=== PATIENT | female | born 1945 | race Caucasian/White ===

== ENCOUNTER → 2017-01-14 | Outpatient (CLI) | payer MEDICARE, BC, OTHER ==
--- NOTE | 2017-01-17 09:23 | MM ---
Reason for exam: additional evaluation requested from prior study. Last mammogram was performed 1 year and 4 months ago. History: Patient is postmenopausal and has history of colon cancer at age 52. Family history of breast cancer in paternal grandmother, breast cancer in paternal aunt at age 55, and premenopausal breast cancer in maternal cousin at age 35. Benign MG pre op needle loc LT of the left breast, October 09, 2015. Benign MG stereo VAD BX LT of the left breast, September 11, 2015. Benign excisional biopsy of the left breast, July 27, 2000. Physical Findings: Nurse did not find any significant physical abnormalities on exam. MG 3D Diag Mammo W/Cad WENDY Bilateral CC and MLO view(s) were taken. Prior study comparison: December 02, 2015, mammogram. September 03, 2015, left breast MG 3d work up w/cad LT. September 01, 2015, bilateral MG screening mammo w CAD. There are scattered fibroglandular densities. No significant new findings when compared with previous films. These results were verbally communicated with the patient and result sheet given to the patient on 01/14/17. ASSESSMENT: Benign, BI-RAD 2 RECOMMENDATION: Routine screening mammogram of both breasts in 1 year.
== END | disposition home or self-care (01) ==
LOC: RADMAMWWP 06:51
PROVIDERS: ATTEND Internal Medicine Hematology & Oncology
DX: R92.8 Other abnormal and inconclusive findings on diagnostic imaging of breast (principal)
CPT/HCPCS: G0204; G0279

== ENCOUNTER → 2018-03-28 | Outpatient (CLI) | payer MEDICARE, BC, OTHER ==
--- NOTE | 2018-03-28 11:16 | MM ---
Reason for exam: screening (asymptomatic). Last mammogram was performed 1 year and 2 months ago. History: Patient is postmenopausal and has history of colon cancer at age 52. Family history of breast cancer in paternal grandmother, breast cancer in paternal aunt at age 55, and premenopausal breast cancer in maternal cousin at age 35. Benign MG pre op needle loc LT of the left breast, October 09, 2015. Benign MG stereo VAD BX LT of the left breast, September 11, 2015. Benign excisional biopsy of the left breast, July 27, 2000. Physical Findings: A clinical breast exam by your physician is recommended on an annual basis and results should be correlated with mammographic findings. MG 3D Screening Mammo W/Cad Bilateral CC and MLO view(s) were taken. Prior study comparison: January 14, 2017, bilateral MG 3d diag mammo w/cad WENDY. December 02, 2015, mammogram. There are scattered fibroglandular densities. No significant changes when compared with prior studies. ASSESSMENT: Benign, BI-RAD 2 RECOMMENDATION: Routine screening mammogram of both breasts in 1 year.
== END | disposition home or self-care (01) ==
LOC: RADMAMWWP 06:46
PROVIDERS: ATTEND Internal Medicine Hematology & Oncology
DX: Z12.31 Encounter for screening mammogram for malignant neoplasm of breast (principal)
CPT/HCPCS: 77063; 77067

== ENCOUNTER → 2018-07-10 | Outpatient (CLI) | payer MEDICARE, BC ==
--- NOTE | 2018-07-12 03:43 | CT ---
EXAMINATION TYPE: CT ChestAbdPelvis w con DATE OF EXAM: 07/10/2018 COMPARISON: Abdomen and pelvis 10/16/2015 HISTORY: 73-year-old female complains of nausea, diarrhea, and history of colorectal CA. TECHNIQUE: Contiguous axial scanning of the chest, abdomen, and pelvis performed with IV Contrast, pa tient injected with 100 mL of Isovue 300. Delayed images through the kidneys were obtained. Coronal/s agittal reconstructions performed. CT DLP: 1662 mGycm Automated exposure control for dose reduction was used. FINDINGS: Chest: Heart borderline enlarged without pericardial effusion. Aorta normal caliber with conventional arch vessel branching anatomy. No thoracic lymphadenopathy by CT size criteria. Mild diffuse bronchial wall thickening could represent bronchitis or asthma. Mild dependent atelectas is and thickened band of atelectasis at the left base. No consolidation or pleural effusion. ABDOMEN: The liver shows no focal lesion but now demonstrates moderate intrahepatic biliary ductal dilatation. Portal venous system is patent. Gallbladder hydropic measuring 14 cm long with multiple calculi jessee uring up to 1.8 cm. No surrounding inflammatory change. In addition, there is new mild diffuse dilatation of the main pancreatic duct up to 5 mm. Pancreatic atrophy was present on prior exam but there is a new hypovascular 2.3 cm mass within the pancreatic h ead region. Adjacent hypodense lesion adjacent to the uncinate process suspected peripancreatic lymph node measur ing 1.7 cm. Adrenal glands, kidneys, and spleen appear within normal limits. No dilated small bowel, free fluid, or free air. No additional mesenteric or retroperitoneal lymphadenopathy identified. Oral contrast has progressed to the hepatic flexure. Mild to moderate stools present with scattered c olonic diverticulosis. Left lower quadrant sigmoid colostomy with redemonstrated parastomal hernia. The hernia neck measures 3.8 cm wide persistent 3.2 cm, previously in the hernia sac itself contains mesentery and small carmen l loops measuring up to 13.6 cm wide and 16.3 cm craniocaudal (versus 13.7 x 15.1 cm, previously. The re continues to be mass effect on to the anterior abdominal wall suggesting a hernia may be incarcera ada. No inflammatory changes are seen within the hernia sac. Some focal soft tissue thickening along the inferomedial margin of the hernia sac, axial image 99 rem ains unchanged from 2016 suggesting possible scarring. PELVIS: Surgical clips and postoperative changes in the pelvis and at the level of the distal rectum which arechiga s been removed. Bladder is urine distended. Uterus is visualized. Neither ovary is clearly seen. Bones: Scattered endplate spondylosis in the thoracic spine. No osseous destructive process. IMPRESSION: 1. POSTSURGICAL CHANGES OF DISTAL RESECTION AND LEFT LOWER QUADRANT SIGMOID COLOSTOMY. THERE IS PERSI STENT 16.3 CM PARASTOMAL HERNIA CONTAINING MESENTERY AND MULTIPLE SMALL BOWEL LOOPS WITH THE HERNIA H AVING MINIMALLY ENLARGED IN THE INTERVAL. UNCHANGED MASS EFFECT ONTO THE ANTERIOR ABDOMINAL WALL SUGG ESTS THAT THE HERNIA MAY BE INCARCERATED. NO INFLAMMATORY CHANGES TO SUGGEST STRANGULATION. 2. NEW 2.3 CM HYPOVASCULAR PANCREATIC HEAD MASS WITH NEW INTRAHEPATIC BILIARY DUCTAL DILATATION AND M ILD DIFFUSE DILATATION OF THE PANCREATIC DUCT. FINDINGS SUGGEST PANCREATIC ADENOCARCINOMA UNTIL PROVE N OTHERWISE. 3. A NEW 1.7 CM PERIPANCREATIC LYMPH NODE ADJACENT TO THE UNCINATE PROCESS IS SUSPICIOUS. 4. CHOLELITHIASIS AND HYDROPIC GALLBLADDER WITHOUT SURROUNDING INFLAMMATION. HYDROPIC CHANGE LIKELY S ECONDARY TO THE SAME MECHANISM CAUSING THE BILIARY DUCTAL DILATATION.
== END ==
LOC: RADCTMAIN 11:22
PROVIDERS: ATTEND Nurse Practitioner Women's Health
DX: Z08 Encounter for follow-up examination after completed treatment for malignant neoplasm (principal); Z85.038 Personal history of other malignant neoplasm of large intestine; K80.20 Calculus of gallbladder without cholecystitis without obstruction; Z88.0 Allergy status to penicillin
CPT/HCPCS: 71260; 74177; Q9967

== ENCOUNTER 2018-08-18 08:16 | Day surgery (SDC) | payer MEDICARE, BC ==
[2018-08-14 15:31] VITALS: BMI 33.4
[~2018-08-18 08:16] MED LIST: DEXAMETHASONE SOD PHOSPHATE 10 MG/ML 1 ML VIAL IV ONE; HYDROmorphone 0.5 MG/0.5 ML SYRINGE IVP PRN; LACTATED RINGERS 1,000 ML IV SCH; MIDAZOLAM 2 MG/2 ML VIAL IV PRN; ONDANSETRON 4 MG/2 ML VIAL IVP ONE; Pre Op ABX Message 1 EACH MISC MISCELLANE ONE
--- NOTE | 2018-08-18 08:42 | P.GSHP ---
History of Present Illness H&P Date: 08/18/18 CHIEF COMPLAINT: Pancreatic cancer HISTORY OF PRESENT ILLNESS: The patient is a 73-year-old female diagnosed with pancreatic cacner. Sbe needs a Mediport placement for chemotherapy. PAST MEDICAL HISTORY: See list PAST SURGICAL HISTORY: See list CURRENT MEDICATIONS: See list. ALLERGIES: See list. SOCIAL HISTORY: No active tobacco or alcohol use. FAMILY HISTORY: Noncontributory. REVIEW OF ORGAN SYSTEMS: CONSTITUTIONAL: Has weight loss. PHYSICAL EXAMINATION: Vital signs: Stable GENERAL: Well developed and in no acute distress. Pleasant. HEENT: No sclera icterus. Extraocular movements grossly intact. Moist buccal mucosa. Head is atraumatic, normocephalic. Hears conversational speech. No nasal drainage. NECK: Supple without lymphadenopathy. No JV distention. CHEST: Non-labored respirations and equal bilateral excursions. CARDIOVASCULAR: Regular rate and rhythm. Palpable 2+ radial pulses. ABDOMEN: Nontender. MUSCULOSKELETAL: No clubbing, cyanosis or edema. NEUROLOGIC: No focal or lateralizing signs. PSYCH: Appropriate affect. Alert and oriented to person, place and time. ASSESSMENT: 1. Pancreatic cancer. 2. Need for chemotherapeutic access. PLAN: 1. Agree with Port-A-Cath placement. Past Medical History Past Medical History: Cancer, Diabetes Mellitus, Osteoarthritis (OA) Additional Past Medical History / Comment(s): HX OF COLO-RECTAL CANCER WITH CHEMO & RADIATION( 1997)- HAS COLOSTOMY. Pancreatic cancer (dx 08/01)fs History of Any Multi-Drug Resistant Organisms: None Reported Past Surgical History: Appendectomy, Bowel Resection, Joint Replacement, Tonsillectomy Additional Past Surgical History / Comment(s): MISCARRIAGE WITH D & C, LEFT BREAST BX, COLOSTOMY, WENDY TOTAL KNEES, "stent placed in tube from liver to pancreas" Past Anesthesia/Blood Transfusion Reactions: No Reported Reaction Smoking Status: Never smoker - Past Family History Father Family Medical History: Cancer Additional Family Medical History / Comment(s): LUNG CA. GRANDMOTHER- COLORECTAL CANCER. GRANDMOTHER- BREAST CANCER Mother Family Medical History: Neurologic Disorder Additional Family Medical History / Comment(s): "she from alzheimers" Brother(s) Family Medical History: Cancer Additional Family Medical History / Comment(s): CA: colorectal- Sister(s) Family Medical History: Cancer Additional Family Medical History / Comment(s): CA: cervical ca caused by Diethylstilbestrol (VANESSA) that mother received while with her Medications and Allergies Home Medications Medication Instructions Recorded Confirmed Type Levothyroxine Sodium [Synthroid] 50 mcg PO DAILY 08/14/18 08/14/18 History Lipase/Protease/Amylase [Chazon Dr 12,000 units PO AC-TID 08/14/18 08/14/18 History 12,000 Units Capsule] metFORMIN HCL [Glucophage] 500 mg PO BID 08/14/18 08/14/18 History Allergies Allergy/AdvReac Type Severity Reaction Status Date / Time Penicillins AdvReac Unknown Nausea & Verified 08/14/18 15:19 Vomiting
[2018-08-18] MEDS ORDERED: ceFAZolin IN SWFI 2 GM/20 ML SYRINGE IVP STA (08:43)
[2018-08-18 09:16] LABS: Glucose,Whole Blood 238 mg/dL (75-99)
[2018-08-18] MEDS ORDERED: INSULIN ASPART (NovoLOG) 100 UNIT/ML VIAL SQ ONE (09:16)
[2018-08-18] MEDS ORDERED: HEPARIN SODIUM,PORCINE 100 UNIT/ML 5 ML VIAL IV ONE ×2 (09:48→10:39)
[2018-08-18] MEDS ORDERED: HEPARIN SODIUM,PORCINE 10,000 UNIT/ML 1 ML VIAL IV ONE (09:49)
[2018-08-18] MEDS ORDERED: BUPIVACAIN-EPI 0.25%-1:200,000 30 ML VIAL SQ ONE (09:50)
[2018-08-18] MEDS ORDERED: fentaNYL (PF) 50 MCG/ML 2 ML AMP ONE (10:02)
[2018-08-18] MEDS ORDERED: MIDAZOLAM 2 MG/2 ML VIAL ONE (10:02)
[2018-08-18] MEDS ORDERED: PROPOFOL 10 MG/ML 20 ML VIAL IV ONE (10:02)
[2018-08-18 11:05] VITALS: TEMP 97.2
--- NOTE | 2018-08-18 11:16 | FL ---
EXAMINATION TYPE: FL guided central line placemt DATE OF EXAM: 08/18/2018 CLINICAL HISTORY: Mediport placement. Fluoroscopic documentation. TECHNIQUE: Fluoroscopy. COMPARISON: None. FINDINGS: Fluoroscopic guidance was provided during procedure performed by Dr. Johnson. A total o f 1 seconds of fluoroscopic time was utilized during the procedure and 1 spot images was acquired dem onstrating a right-sided Mediport. IMPRESSION: As Above.
[2018-08-18 11:32] LABS: Glucose,Whole Blood 257 mg/dL (75-99)
--- NOTE | 2018-08-18 11:36 | P.PCN ---
Date of Procedure: 08/18/18 Description of Procedure: SURGEON: MAYELIN JOHNSON MD SPORTING GOODS SALES MANAGER: None. PREOPERATIVE DIAGNOSES: 1. Pancreatic cancer 2. Need for chemotherapeutic access. 3. Morbid obesity due to excess calories, BMI 33.5 4. Hypertensive heart disease. 5. Diabetes type 2, [id number] 6. Hypothyroidism 7. Pancreatic insufficiency 8. History of prior right chest wall Mediport POSTOPERATIVE DIAGNOSES: 1. Pancreatic cancer 2. Need for chemotherapeutic access. 3. Morbid obesity due to excess calories, BMI 33.5 4. Hypertensive heart disease. 5. Diabetes type 2, [id number]-nrmdhmigh 6. Hypothyroidism 7. Pancreatic insufficiency 8. History of prior right chest wall Mediport PROCEDURES PERFORMED: 1. Ultrasound guided central venous access of the right internal jugular venous vein. 2. Fluoroscopic guidance for central venous access right internal jugular vein, 1 seconds. 3. Placement of right internal jugular power port 6 Thai by Ang[employer], Xcela Plus Port ANESTHESIA: IV sedation with local. ESTIMATED BLOOD LOSS: 2 mL. SPECIMENS REMOVED: None. COMPLICATIONS: None. INDICATIONS: The patient is a 73-year-old female recently diagnosed with pancreatic cancer. She presents for chemotherapeutic access. Benefits and risks of surgical intervention were described including bleeding, infection, mechanical problems with his port. Informed consent was obtained. DESCRIPTION OR PROCEDURE: Patient was brought into the operating room, laid in supine position. After adequate IV sedation, the chest and right neck were prepped and draped in a standard sterile fashion including the shoulder with ChloraPrep. Timeout protocol was confirmed with the surgical team regarding the patient's name, procedure to be performed including preoperative medications for which she received IV antibiotics. Bilateral SCDs were placed. An ultrasound was used to capture views of the right internal jugular vein including right carotid artery, which was patent and without thrombus along its course. The right IJ was then localized using anesthetic for the skin. A 16 Thai needle was used to access the IJ. A guidewire was advanced into the IJ with dark nonpulsatile venous blood. Two fingerbreadths distal to the clavicle, on the lateral third, a transverse 1.5 to 2 cm incision was deepened into the skin after localizing the skin. A pocket was created for the port. The port on the back table was flushed with heparinized saline and then attached to the catheter tubing. An adapter was fastened to the actual port site over the tubing. The port easily had fit snug into the pocket. A subcutaneous tunneler was placed along the open end of the tubing and brought out through the separate stab incision. Fluoroscopic guidance confirmed no kinking along the tubing and the port site. Next, the J-wire was exchanged for a catheter sheath for which the tubing was cut to 20 cm and then advanced through the catheter sheath. The Peel-away sheath was then removed and the tubing was secured at the junction of the superior vena cava as well as the right atrium. The tubing was found to be crossed however functional. This was all done under fluoroscopic guidance, 1 seconds. Easy pullback as well as return and aspiration was obtained of the port site. The skin incision was closed using layers using 3-0 Vicryl for the subcu followed by 4-0 Monocryl in a running subcuticular fashion. At the stick site this was also reapproximated using 4-0 Monocryl. The incisions were covered with Optifoam, The skin was cleansed and Exofin liquid glue was applied. Optifoam dressing was placed over the port site. A total of 20 mL of local anesthetic was placed. At the end of the procedure, needle, sponge, and instrument count was verified correct by salesperson surgical appliances. Heparin lock of 5 mL was placed. The patient was awoken and pain free and taken to the second stage postanesthesia care unit. The patient tolerated the procedure well. FINDINGS: 1. No thrombus encountered along the right carotid artery or internal jugular vein. 2. Access of the right internal jugular vein under ultrasound guidance. 3. Fluoroscopy, 1 seconds. Plan - Discharge Summary Discharge Rx Participant: No New Discharge Prescriptions: No Action Levothyroxine Sodium [Synthroid] 50 mcg PO DAILY metFORMIN HCL [Glucophage] 500 mg PO BID Lipase/Protease/Amylase [Creon Dr 12,000 Units Capsule] 12,000 units PO AC- TID Discharge Medication List Levothyroxine Sodium [Synthroid] 50 mcg PO DAILY 08/14/18 [History] Lipase/Protease/Amylase [Creon Dr 12,000 Units Capsule] 12,000 units PO AC-TID 08/14/18 [History] metFORMIN HCL [Glucophage] 500 mg PO BID 08/14/18 [History] Follow up Appointment(s)/Referral(s): Mayelin Johnson MD [STAFF PHYSICIAN] - As Needed Patient Instructions/Handouts: Implanted Venous Access Port (GEN) Activity/Diet/Wound Care/Special Instructions: No lifting over 5 pounds for 5 days. Expect bruising along the shoulder. Remove dressing on 08/21/2018. Please sleep elevated on 2-3 pillows to minimize bruising. May use Tylenol for pain.
--- NOTE | 2018-08-18 11:39 | P.OP ---
Date of Procedure: 08/18/18 Description of Procedure: SURGEON: MAYELIN JOHNSON MD LOADING CHECKER: None. PREOPERATIVE DIAGNOSES: 1. Pancreatic cancer 2. Need for chemotherapeutic access. 3. Morbid obesity due to excess calories, BMI 33.5 4. Hypertensive heart disease. 5. Diabetes type 2, [id number] 6. Hypothyroidism 7. Pancreatic insufficiency 8. History of prior right chest wall Mediport POSTOPERATIVE DIAGNOSES: 1. Pancreatic cancer 2. Need for chemotherapeutic access. 3. Morbid obesity due to excess calories, BMI 33.5 4. Hypertensive heart disease. 5. Diabetes type 2, alo-zoslrqb-zlexyxmkl 6. Hypothyroidism 7. Pancreatic insufficiency 8. History of prior right chest wall Mediport PROCEDURES PERFORMED: 1. Ultrasound guided central venous access of the right internal jugular venous vein. 2. Fluoroscopic guidance for central venous access right internal jugular vein, 1 seconds. 3. Placement of right internal jugular power port 6 Fijian by Ang[employer], Xcela Plus Port ANESTHESIA: IV sedation with local. ESTIMATED BLOOD LOSS: 2 mL. SPECIMENS REMOVED: None. COMPLICATIONS: None. INDICATIONS: The patient is a 73-year-old female recently diagnosed with pancreatic cancer. She presents for chemotherapeutic access. Benefits and risks of surgical intervention were described including bleeding, infection, mechanical problems with his port. Informed consent was obtained. DESCRIPTION OR PROCEDURE: Patient was brought into the operating room, laid in supine position. After adequate IV sedation, the chest and right neck were prepped and draped in a standard sterile fashion including the shoulder with ChloraPrep. Timeout protocol was confirmed with the surgical team regarding the patient's name, procedure to be performed including preoperative medications for which she received IV antibiotics. Bilateral SCDs were placed. An ultrasound was used to capture views of the right internal jugular vein including right carotid artery, which was patent and without thrombus along its course. The right IJ was then localized using anesthetic for the skin. A 16 Fijian needle was used to access the IJ. A guidewire was advanced into the IJ with dark nonpulsatile venous blood. Two fingerbreadths distal to the clavicle, on the lateral third, a transverse 1.5 to 2 cm incision was deepened into the skin after localizing the skin. A pocket was created for the port. The port on the back table was flushed with heparinized saline and then attached to the catheter tubing. An adapter was fastened to the actual port site over the tubing. The port easily had fit snug into the pocket. A subcutaneous tunneler was placed along the open end of the tubing and brought out through the separate stab incision. Fluoroscopic guidance confirmed no kinking along the tubing and the port site. Next, the J-wire was exchanged for a catheter sheath for which the tubing was cut to 20 cm and then advanced through the catheter sheath. The Peel-away sheath was then removed and the tubing was secured at the junction of the superior vena cava as well as the right atrium. The tubing was found to be crossed however functional. This was all done under fluoroscopic guidance, 1 seconds. Easy pullback as well as return and aspiration was obtained of the port site. The skin incision was closed using layers using 3-0 Vicryl for the subcu followed by 4-0 Monocryl in a running subcuticular fashion. At the stick site this was also reapproximated using 4-0 Monocryl. The incisions were covered with Optifoam, The skin was cleansed and Exofin liquid glue was applied. Optifoam dressing was placed over the port site. A total of 20 mL of local anesthetic was placed. At the end of the procedure, needle, sponge, and instrument count was verified correct by surgical services coordinator. Heparin lock of 5 mL was placed. The patient was awoken and pain free and taken to the second stage postanesthesia care unit. The patient tolerated the procedure well. FINDINGS: 1. No thrombus encountered along the right carotid artery or internal jugular vein. 2. Access of the right internal jugular vein under ultrasound guidance. 3. Fluoroscopy, 1 seconds. Plan - Discharge Summary Discharge Rx Participant: No New Discharge Prescriptions: No Action Levothyroxine Sodium [Synthroid] 50 mcg PO DAILY metFORMIN HCL [Glucophage] 500 mg PO BID Lipase/Protease/Amylase [Creon Dr 12,000 Units Capsule] 12,000 units PO AC- TID Discharge Medication List Levothyroxine Sodium [Synthroid] 50 mcg PO DAILY 08/14/18 [History] Lipase/Protease/Amylase [Creon Dr 12,000 Units Capsule] 12,000 units PO AC-TID 08/14/18 [History] metFORMIN HCL [Glucophage] 500 mg PO BID 08/14/18 [History] Follow up Appointment(s)/Referral(s): Mayelin Johnson MD [STAFF PHYSICIAN] - As Needed Patient Instructions/Handouts: Implanted Venous Access Port (GEN) Activity/Diet/Wound Care/Special Instructions: No lifting over 5 pounds for 5 days. Expect bruising along the shoulder. Remove dressing on 08/21/2018. Please sleep elevated on 2-3 pillows to minimize bruising. May use Tylenol for pain.
[2018-08-18 11:44] VITALS: RESP 16
[2018-08-18] MEDS ORDERED: LACTATED RINGERS 1,000 ML IV ONE (11:44)
--- NOTE | 2018-08-18 12:10 | XR ---
EXAMINATION TYPE: XR chest 1V confirm line [facility] DATE OF EXAM: 08/18/2018 COMPARISON: NONE HISTORY: Right-sided Mediport placement TECHNIQUE: Single frontal view of the chest is obtained. FINDINGS: There is no focal air space opacity, pleural effusion, or pneumothorax seen. There is a r ight-sided Mediport with its distal tip terminating in the internal jugular vein. The cardiac silhoue tte size is upper limits of normal size. The osseous structures are intact. IMPRESSION: Right-sided Mediport with its distal tip terminating in the internal jugular vein. No po stprocedural pneumothorax.
[2018-08-18 12:18] VITALS: BP 117/67; PULSE 85
== END 2018-08-18 12:46 | disposition home or self-care (01) ==
LOC: OR 08:16
PROVIDERS: ATTEND Surgery Plastic and Reconstructive Surgery
DX: Z85.048 Personal history of other malignant neoplasm of rectum, rectosigmoid junction, and anus (principal); E11.9 Type 2 diabetes mellitus without complications; E03.9 Hypothyroidism, unspecified; E66.01 Morbid (severe) obesity due to excess calories; Z68.33 Body mass index [BMI] 33.0-33.9, adult; I11.9 Hypertensive heart disease without heart failure; M19.90 Unspecified osteoarthritis, unspecified site; K86.89 Other specified diseases of pancreas; Z93.3 Colostomy status; Z85.038 Personal history of other malignant neoplasm of large intestine; Z92.3 Personal history of irradiation; Z92.21 Personal history of antineoplastic chemotherapy; Z80.0 Family history of malignant neoplasm of digestive organs; Z80.3 Family history of malignant neoplasm of breast; Z80.1 Family history of malignant neoplasm of trachea, bronchus and lung; Z80.49 Family history of malignant neoplasm of other genital organs; Z79.84 Long term (current) use of oral hypoglycemic drugs; Z79.3 Long term (current) use of hormonal contraceptives; Z79.899 Other long term (current) drug therapy; Z88.0 Allergy status to penicillin
CPT/HCPCS: 77001; 36561; C1788; J2250; J1644; J1642; J1100; J2405; J3010; J2704; J0690

== ENCOUNTER 2018-08-22 11:05 | Day surgery (SDC) | payer MEDICARE, BC ==
[2018-08-22 14:14] VITALS: RESP 16; TEMP 97.8
[2018-08-22 14:32] VITALS: BP 137/72; PULSE 90
--- NOTE | 2018-08-22 15:04 | IR ---
Port-A-Cath check HISTORY: Malfunctioning Port-A-Cath 0.3 minutes fluoroscopy time, 120 images, comparison to prior exam 08/18/2018 chest x-ray Real-time fluoroscopy shows the catheter with the tip coursing cephalad into the neck. Gentle hand injection of contrast shows no extravasation, no leak. The catheter tip overlying the sof t tissues of the right neck, contrast does not flow away from the catheter tip, contrast is present o n delay within the soft tissues. IMPRESSION: Catheter tip has moved from previously identified position as described.
== END 2018-08-22 12:30 | disposition home or self-care (01) ==
LOC: CATHCVL 11:05
PROVIDERS: ATTEND Radiology Diagnostic Radiology
DX: T82.524A Displacement of infusion catheter, initial encounter (principal); C25.0 Malignant neoplasm of head of pancreas; Z80.0 Family history of malignant neoplasm of digestive organs; Z85.048 Personal history of other malignant neoplasm of rectum, rectosigmoid junction, and anus; E03.9 Hypothyroidism, unspecified; E11.9 Type 2 diabetes mellitus without complications; Z80.1 Family history of malignant neoplasm of trachea, bronchus and lung; Z88.0 Allergy status to penicillin; Z79.890 Hormone replacement therapy; Z79.84 Long term (current) use of oral hypoglycemic drugs; Z79.899 Other long term (current) drug therapy
CPT/HCPCS: 36598

== ENCOUNTER 2018-09-01 06:08 | Day surgery (SDC) | payer MEDICARE, BC ==
[~2018-09-01 06:08] MED LIST changes: -LACTATED RINGERS 1,000 ML IV SCH; +LIDOCAINE 1% 20 ML VIAL (10MG/ML) FOR IV START INTRADERMA PRN; -Pre Op ABX Message 1 EACH MISC MISCELLANE ONE; +SCOPOLAMINE 1.5MG/72HR PATCH TRANSDERM ONE
--- NOTE | 2018-09-01 07:12 | P.GSHP ---
History of Present Illness H&P Date: 09/01/18 CHIEF COMPLAINT: Pancreatic cancer HISTORY OF PRESENT ILLNESS: The patient is a 73-year-old female who presents with malfunction of her mediport. She presents for revision and possible replacement PAST MEDICAL HISTORY: See list PAST SURGICAL HISTORY: See list CURRENT MEDICATIONS: See list. ALLERGIES: See list. SOCIAL HISTORY: No active tobacco or alcohol use. FAMILY HISTORY: Noncontributory. REVIEW OF ORGAN SYSTEMS: CONSTITUTIONAL: Has weight loss. PHYSICAL EXAMINATION: Vital signs: Stable GENERAL: Well developed and in no acute distress. Pleasant. HEENT: No sclera icterus. Extraocular movements grossly intact. Moist buccal mucosa. Head is atraumatic, normocephalic. Hears conversational speech. No nasal drainage. NECK: Supple without lymphadenopathy. No JV distention. CHEST: Non-labored respirations and equal bilateral excursions. CARDIOVASCULAR: Regular rate and rhythm. Palpable 2+ radial pulses. ABDOMEN: Nontender. MUSCULOSKELETAL: No clubbing, cyanosis or edema. NEUROLOGIC: No focal or lateralizing signs. PSYCH: Appropriate affect. Alert and oriented to person, place and time. ASSESSMENT: 1. Pancreatic cancer 2. Need for chemotherapeutic access. PLAN: 1. Agree with Port-A-Cath revision possible placement. Past Medical History Past Medical History: Cancer, Diabetes Mellitus, Osteoarthritis (OA), Thyroid Disorder Additional Past Medical History / Comment(s): HX OF COLO-RECTAL CANCER WITH CHEMO & RADIATION( 1997)- HAS COLOSTOMY. Pancreatic cancer (dx 08/01)fs History of Any Multi-Drug Resistant Organisms: None Reported Past Surgical History: Appendectomy, Bowel Resection, Joint Replacement, Tonsillectomy Additional Past Surgical History / Comment(s): MISCARRIAGE WITH D & C, LEFT BREAST BX, COLOSTOMY, WENDY TOTAL KNEES, "stent placed in tube from liver to pancreas", WENDY. CATARACT REMOVAL Past Anesthesia/Blood Transfusion Reactions: No Reported Reaction Smoking Status: Never smoker - Past Family History Father Family Medical History: Cancer Additional Family Medical History / Comment(s): LUNG CA. GRANDMOTHER- COLORECTAL CANCER. GRANDMOTHER- BREAST CANCER Mother Family Medical History: Neurologic Disorder Additional Family Medical History / Comment(s): "she from alzheimers" Brother(s) Family Medical History: Cancer Additional Family Medical History / Comment(s): CA: colorectal- Sister(s) Family Medical History: Cancer Additional Family Medical History / Comment(s): CA: cervical ca caused by Diethylstilbestrol (VANESSA) that mother received while with her Medications and Allergies Home Medications Medication Instructions Recorded Confirmed Type Lipase/Protease/Amylase [Creon Dr 12,000 units PO AC-BID 08/14/18 09/01/18 History 12,000 Units Capsule] metFORMIN HCL [Glucophage] 500 mg PO BID 08/14/18 09/01/18 History Levothyroxine Sodium [Synthroid] 50 mcg PO DAILY 08/28/18 09/01/18 History Allergies Allergy/AdvReac Type Severity Reaction Status Date / Time Penicillins AdvReac Unknown Nausea & Verified 08/28/18 10:53 Vomiting Surgical - Exam Vital Signs Temp Pulse Resp BP Pulse Ox 97.8 F 91 18 150/83 97 09/01/18 06:57 09/01/18 06:57 09/01/18 06:57 09/01/18 06:57 09/01/18 06:57
[2018-09-01] MEDS: LACTATED RINGERS 1,000 ML IV SCH (07:18)
[2018-09-01] MEDS ORDERED: INSULIN ASPART (NovoLOG) 100 UNIT/ML VIAL SQ ONE ×2 (07:19→08:59)
[2018-09-01 07:29] LABS: Glucose,Whole Blood 369 mg/dL (75-99)
[2018-09-01] MEDS ORDERED: KETAMINE 10 MG/ML 20 ML VIAL ONE (07:36)
[2018-09-01] MEDS ORDERED: fentaNYL (PF) 50 MCG/ML 2 ML AMP ONE (07:36)
[2018-09-01] MEDS ORDERED: MIDAZOLAM 2 MG/2 ML VIAL ONE (07:36)
[2018-09-01] MEDS ORDERED: ceFAZolin 1,000 MG VIAL IVPB ONE (07:55)
[2018-09-01] MEDS ORDERED: HEPARIN SODIUM,PORCINE 100 UNIT/ML 5 ML VIAL IV ONE (08:03)
[2018-09-01] MEDS ORDERED: HEPARIN SODIUM,PORCINE 10,000 UNIT/ML 1 ML VIAL IV ONE (08:03)
[2018-09-01] MEDS ORDERED: BUPIVACAIN-EPI 0.5%-1:200,000 30 ML VIAL SQ ONE ×2 (08:05)
[2018-09-01] MEDS ORDERED: NALOXONE 0.4 MG/ML 1 ML VIAL IV PRN (08:59)
[2018-09-01] MEDS ORDERED: traMADol 50 MG TAB PO PRN (08:59)
[2018-09-01 09:01] LABS: Glucose,Whole Blood 349 mg/dL (75-99)
--- NOTE | 2018-09-01 09:12 | FL ---
Fluoroscopy HISTORY: Port-A-Cath placement 2 seconds fluoroscopy time supplied to the referring clinician. 3 intraoperative C-arm images docume nt the procedure. See dictated report from general surgery.
--- NOTE | 2018-09-01 09:25 | P.OP ---
Date of Procedure: 09/01/18 Description of Procedure: SURGEON: BRANDI BOYD MD MAJOR DONOR COORDINATOR: None. PREOPERATIVE DIAGNOSES: 1. Pancreatic cancer 2. Need for chemotherapeutic access. 3. Morbid obesity due to excess calories, BMI 33.5 4. Hypertensive heart disease. 5. Diabetes type 2, [id number], poorly controlled. 6. Hypothyroidism 7. Pancreatic insufficiency 8. History of prior right chest wall Mediport 9. Malfunction of right internal jugular mediport 10. Severe hyperglycemia POSTOPERATIVE DIAGNOSES: 1. Pancreatic cancer 2. Need for chemotherapeutic access. 3. Morbid obesity due to excess calories, BMI 33.5 4. Hypertensive heart disease. 5. Diabetes type 2, [id number]-hqacikplq, poorly controlled. 6. Hypothyroidism 7. Pancreatic insufficiency 8. History of prior right chest wall Mediport 9. Malfunction of right internal jugular mediport 10. Severe hyperglycemia PROCEDURES PERFORMED: 1. Removal of malfunctioned right internal jugular vein Port-A-Cath. 2. Ultrasound guided central venous access of the right internal jugular venous vein. 3. Fluoroscopic guidance for central venous access right internal jugular vein, 2 seconds. 4. Placement of NEW right internal jugular power port 6 [place] [employer], Xcela Plus Port ANESTHESIA: IV sedation with local. ESTIMATED BLOOD LOSS: 1 mL. SPECIMENS REMOVED: None. COMPLICATIONS: None. INDICATIONS: The patient is a 73-year-old female who 2 weeks ago had a right internal jugular port placed for pancreatic cancer. She had a recent interventional radiology imaging showing new dislodgment of her port. She presents for revision of her port. Benefits and risks of surgical intervention were described including bleeding, infection, mechanical problems with her port. Informed consent was obtained. DESCRIPTION OR PROCEDURE: Patient was brought into the operating room, laid in supine position. After adequate IV sedation, the chest and right neck were prepped and draped in a standard sterile fashion including the shoulder with ChloraPrep. Timeout protocol was confirmed with the surgical team regarding the patient's name, procedure to be performed including preoperative medications for which she received IV antibiotics. Bilateral SCDs were placed. Initial attention is port to the old port including ultrasound and fluoroscopy confirming complete dislodgment of the catheter outside of the right jugular vein. Attention is brought to the area of the port site, whereby a total of 30 mL of local was infiltrated into the skin for a field block. A #15 blade was used to incise along the previous cicatrix. Electro- Bovie cautery was used to control for hemostasis. Adhesions were lysed around the Mediport. The port was extracted without sequelae. An ultrasound was used to capture views of the right internal jugular vein including right carotid artery, which was patent and without thrombus along its course. The right IJ was then localized using anesthetic for the skin. A 16 [place] needle was used to access the IJ. A guidewire was advanced into the IJ with dark nonpulsatile venous blood. The pocket was explored. The port on the back table was flushed with heparinized saline and then attached to the catheter tubing. An adapter was fastened to the actual port site over the tubing. The port easily had fit snug into the pocket. A subcutaneous tunneler was placed along the open end of the tubing and brought out through the separate stab incision. Fluoroscopic guidance confirmed no kinking along the tubing and the port site. Next, the J-wire was exchanged for a catheter sheath for which the tubing was cut to 25 cm after confirming with fluoro extended length into the superior vena cava including no malpositioning or dislodgment with neck rotation. The tubing was advanced through the catheter sheath. The Peel-away sheath was then removed and the tubing was secured at the junction of the superior vena cava as well as the right atrium. Fluoroscopic guidance was 2 seconds. Easy pullback as well as return and aspiration was obtained of the port site. The skin incision was closed using layers using 3-0 Vicryl for the subcu followed by 4-0 Monocryl in a running subcuticular fashion. At the stick site this was also reapproximated using 4-0 Monocryl. The skin was cleansed and Exofin liquid glue was applied. Optifoam dressing was placed over the port site. A total of 20 mL of local anesthetic was placed. At the end of the procedure, needle, sponge, and instrument count was verified correct by artificial insemination technician. Heparin lock of 5 mL was placed. The patient was awoken and pain free and taken to the second stage postanesthesia care unit. The patient tolerated the procedure well. FINDINGS: 1. No thrombus encountered along the right carotid artery or internal jugular vein. 2. Access of the right internal jugular vein under ultrasound guidance. 3. Fluoroscopy of 2 seconds. 4. New stick site and new port with tubing cut to 25 cm confirmed with Fluoroscopy
--- NOTE | 2018-09-01 09:32 | XR ---
EXAMINATION TYPE: XR chest 1V portable DATE OF EXAM: 09/01/2018 HISTORY: Shortness of breath. COMPARISON: 08/18/2018 TECHNIQUE: Single view of the chest is submitted. FINDINGS: Demonstrated are scattered senescent parenchymal change. Persistent left lower lobe infiltrate or atelectasis. Fullness right hilum is unchanged. The heart is stable. Improved pulmonary venous congestion. Hilar and mediastinal structures are within normal limits. Degenerative changes are seen of the dorsal spine. IMPRESSION: 1. Persistent left lower lobe infiltrate or atelectasis. Fullness right hilum is unchanged. The heart is stable. Improved pulmonary venous congestion.
[2018-09-01 10:11] LABS: Glucose,Whole Blood 285 mg/dL (75-99)
[2018-09-01 11:16] LABS: Glucose,Whole Blood 239 mg/dL (75-99)
[2018-09-01 11:31] LABS: Anion Gap 9 mmol/L; Blood Urea Nitrogen 16 mg/dL (7-17); Calcium 9.6 mg/dL (8.4-10.2); Carbon Dioxide 26 mmol/L (22-30); Chloride 100 mmol/L (98-107); Glucose 248 mg/dL (74-99); Potassium 4.1 mmol/L (3.5-5.1); Sodium 135 mmol/L (137-145)
[2018-09-01] MEDS ORDERED: INSULIN ASPART (NovoLOG) 100 UNIT/ML VIAL SQ SCH (12:00)
--- NOTE | 2018-09-01 14:27 | P.CONS ---
History of Present Illness - Reason for Consult Consult date: 09/01/18 Management of diabetes - History of Present Illness This is a pleasant 73-year-old female, patient of my partner Dr. Melvin Sosa, and our nurse practitioner, who underwent removal of malfunctioning right internal jugular vein Port-A-Cath and placement of a new right internal jugular port. She has a history of colorectal cancer and a colostomy. On routine follow-up for this, she was found to have pancreatic carcinoma. She is to have chemotherapy and had the catheter placed in both her chest wall and in the right jugular. The most recent right jugular catheter failed. Dr. Mayelin Diaz and replace that today. Patient was on metformin for type 2 diabetes. She was found to have elevated glucose after procedure. She is admitted for further treatment with diabetes and uncontrolled hyperglycemia. Patient denies any chest pains, pressures, shortness breath, nausea, or vomiting, malfunction of her colostomy, or other complaint Review of Systems All systems: negative Past Medical History Past Medical History: Cancer, Diabetes Mellitus, Osteoarthritis (OA), Thyroid Disorder Additional Past Medical History / Comment(s): HX OF COLO-RECTAL CANCER WITH CHEMO & RADIATION( 1997)- HAS COLOSTOMY. Pancreatic cancer (dx 08/01)fs History of Any Multi-Drug Resistant Organisms: None Reported Past Surgical History: Appendectomy, Bowel Resection, Joint Replacement, Tonsillectomy Additional Past Surgical History / Comment(s): MISCARRIAGE WITH D & C, LEFT BREAST BX, COLOSTOMY, WENDY TOTAL KNEES, "stent placed in tube from liver to pancreas", WENDY. CATARACT REMOVAL, revision of mediport 09/01/18 Past Anesthesia/Blood Transfusion Reactions: No Reported Reaction Past Psychological History: Anxiety Smoking Status: Never smoker Past Alcohol Use History: Rare Past Drug Use History: None Reported - Past Family History Father Family Medical History: Cancer Additional Family Medical History / Comment(s): LUNG CA. GRANDMOTHER- COLOREC JULIO CANCER. GRANDMOTHER- BREAST CANCER Mother Family Medical History: Neurologic Disorder Additional Family Medical History / Comment(s): "she from alzheimers" Brother(s) Family Medical History: Cancer Additional Family Medical History / Comment(s): CA: colorectal- Sister(s) Family Medical History: Cancer Additional Family Medical History / Comment(s): CA: cervical ca caused by Diethylstilbestrol (VANESSA) that mother received while with her Medications and Allergies Home Medications Medication Instructions Recorded Confirmed Type Lipase/Protease/Amylase [Whit Quigley 12,000 units PO AC-BID 08/14/18 09/01/18 History 12,000 Units Capsule] metFORMIN HCL [Glucophage] 500 mg PO BID 08/14/18 09/01/18 History Levothyroxine Sodium [Synthroid] 50 mcg PO DAILY 08/28/18 09/01/18 History Allergies Allergy/AdvReac Type Severity Reaction Status Date / Time Penicillins AdvReac Unknown Nausea & Verified 08/28/18 10:53 Vomiting Physical Exam Vitals: Vital Signs Temp Pulse Pulse Resp BP BP Pulse Ox 09/01/18 10:00 88 17 115/62 96 09/01/18 09:30 90 16 114/60 96 09/01/18 09:08 91 16 136/65 98 09/01/18 08:53 90 16 123/59 98 09/01/18 08:38 97.3 F L 85 16 138/69 94 L 09/01/18 06:57 97.8 F 91 18 150/83 97 Intake and Output 08/31/18 09/01/18 09/01/18 22:59 06:59 14:59 Intake Total 450 Output Total 5 Balance 445 Intake: IV 450 Output: Estimated Blood Loss 5 GENERAL: Pleasant, well-nourished and in no acute distress. HEAD: Atraumatic, normocephalic. EYES: Pupils equal round and reactive to light, extraocular movements intact, sclera anicteric, conjunctiva are normal. ENT:nares patent, oropharynx clear without exudates. Moist mucous membranes. NECK: Normal range of motion, supple without lymphadenopathy or JVD, no thyromegaly, surgical cleansers stained side of her neck and her catheter placement. Her dressing is clean dry and intact. LUNGS: Breath sounds clear to auscultation bilaterally and equal. No wheezes rales or rhonchi. HEART: Regular rate and rhythm without murmurs, rubs or gallops.S1S2 Normal ABDOMEN: Soft, nontender, normoactive bowel sounds. No guarding, no rebound. No masses appreciated. A colostomy bag is in place. EXTREMITIES: Normal range of motion, no pitting or edema. No clubbing or cyanosis. NEUROLOGICAL: Cranial nerves II through XII grossly intact. Normal speech, normal gait. PSYCH: Normal mood, normal affect. SKIN: Warm, Dry, normal turgor, no rashes or lesions noted. Results CBC & Chem 7: 09/01/18 10:58 Labs: Abnormal Lab Results - Last 24 Hours (Table) 09/01/18 09/01/18 09/01/18 Range/Units 07:14 08:47 09:57 Sodium (137-145) mmol/L Creatinine (0.52-1.04) mg/dL Glucose (74-99) mg/dL POC Glucose (mg/dL) 369 H 349 H 285 H (75-99) mg/dL 09/01/18 09/01/18 Range/Units 10:58 11:12 Sodium 135 L (137-145) mmol/L Creatinine 0.45 L (0.52-1.04) mg/dL Glucose 248 H (74-99) mg/dL POC Glucose (mg/dL) 239 H (75-99) mg/dL Assessment and Plan (1) Diabetes mellitus due to underlying condition with hyperglycemia Current Visit: Yes Status: Acute Code(s): E08.65 - DIABETES DUE TO UNDERLYING CONDITION W HYPERGLYCEMIA SNOMED Code(s): 6911524 (2) Morbid (severe) obesity due to excess calories Current Visit: Yes Status: Acute Code(s): E66.01 - MORBID (SEVERE) OBESITY DUE TO EXCESS CALORIES SNOMED Code(s): 759470039 (3) History of antineoplastic chemotherapy Current Visit: Yes Status: Acute Code(s): Z92.21 - PERSONAL HISTORY OF ANTINEOPLASTIC CHEMOTHERAPY SNOMED Code(s): 021083907050262 (4) History of colon cancer Current Visit: Yes Status: Acute Code(s): Z85.038 - PERSONAL HISTORY OF MALIGNANT NEOPLASM OF LARGE INTESTINE SNOMED Code(s): 560958639 (5) Pancreatic cancer Current Visit: Yes Status: Acute Code(s): C25.9 - MALIGNANT NEOPLASM OF PANCREAS, UNSPECIFIED SNOMED Code(s): 305474508 (6) History of radiation therapy Current Visit: Yes Status: Acute Code(s): Z92.3 - PERSONAL HISTORY OF IRRADIATION SNOMED Code(s): 039617070 (7) Pancreatic insufficiency Current Visit: Yes Status: Acute Code(s): K86.89 - OTHER SPECIFIED DISEASES OF PANCREAS SNOMED Code(s): 01845519 (8) Hypothyroidism Current Visit: Yes Status: Acute Code(s): E03.9 - HYPOTHYROIDISM, UNSPECIFIED SNOMED Code(s): 35155243 Plan: We will place her on NovoLog scale every before meals and at bedtime. Accu-Cheks every before meals and at bedtime. We'll obtain hemoglobin A1c, which is artery been ordered by Dr. Johnson. I will order standard laboratory studies, Diabetic education with plans to send her home with fast acting insulin injections before meals and at bedtime versus long-acting once a day insulin We'll plan on remainder of treatment based on her upcoming hemoglobin A1c She will be reevaluated in the next 24 hours. Thank you for allowing me to participate in her care
[2018-09-01 17:09] LABS: Glucose,Whole Blood 293 mg/dL (75-99)
[2018-09-01] MEDS: INSULIN ASPART (NovoLOG) 100 UNIT/ML VIAL SQ SCH ×2 (17:38→21:12)
[2018-09-01 20:04] LABS: Hemoglobin A1C 10.2 % (4.0-6.0)
[2018-09-01] MEDS: LEVOTHYROXINE 50 MCG TAB PO SCH (20:33)
[2018-09-01] MEDS: LIPASE 5,000/PROTEASE 17,000/AMYLASE 24,000 PO SCH (20:33)
[2018-09-01 21:07] LABS: Glucose,Whole Blood 328 mg/dL (75-99)
[2018-09-02] MEDS: LACTATED RINGERS 1,000 ML IV SCH (05:18)
[2018-09-02] MEDS: LEVOTHYROXINE 50 MCG TAB PO SCH (05:38)
[2018-09-02 06:52] LABS: Glucose,Whole Blood 199 mg/dL (75-99)
[2018-09-02 07:49] LABS: Basophils % (A) 0 %; Eosinophils # (A) 0.1 k/uL (0-0.7); Eosinophils % (A) 1 %; HCT 38.7 % (34.0-46.0); HGB 12.1 gm/dL (11.4-16.0); Lymphocytes # (A) 1.6 k/uL (1.0-4.8); Lymphocytes % (A) 15 %; MCH 26.9 pg (25.0-35.0); MCHC 31.2 g/dL (31.0-37.0); MCV 86.5 fL (80.0-100.0); Mean Platelet Volume 9.1; Monocytes # (A) 0.6 k/uL (0-1.0); Monocytes % (A) 5 %; Neutrophils # (A) 8.4 k/uL (1.3-7.7); Neutrophils % (A) 79 %; Platelet Count 161 k/uL (150-450); RBC 4.48 m/uL (3.80-5.40); WBC 10.7 k/uL (3.8-10.6)
[2018-09-02] MEDS: LIPASE 5,000/PROTEASE 17,000/AMYLASE 24,000 PO SCH (07:55)
[2018-09-02] MEDS: INSULIN ASPART (NovoLOG) 100 UNIT/ML VIAL SQ SCH ×2 (07:56→12:50)
[2018-09-02 08:02] LABS: ALT 41 U/L (9-52); AST 33 U/L (14-36); Albumin 2.9 g/dL (3.5-5.0); Alkaline Phosphatase 348 U/L (38-126); Amylase <30 U/L (30-110); Anion Gap 9 mmol/L; Blood Urea Nitrogen 20 mg/dL (7-17); Calcium 9.4 mg/dL (8.4-10.2); Carbon Dioxide 26 mmol/L (22-30); Chloride 98 mmol/L (98-107); Glucose 204 mg/dL (74-99); Lipase 11 U/L (23-300); Magnesium 1.6 mg/dL (1.6-2.3); Potassium 3.8 mmol/L (3.5-5.1); Sodium 133 mmol/L (137-145); Total Protein 5.6 g/dL (6.3-8.2)
--- NOTE | 2018-09-02 10:58 | P.DS ---
Providers Date of admission: 09/01/2018 Expected date of discharge: 09/02/18 Attending physician: Mayelin Johnson Consults: 09/01/18 12:15 Consult Physician Routine Consulting Provider: Melvin Sosa Jr Consult Reason/Comments: primary caregiver Do you want consulting provider notified?: Yes Primary care physician: Melvin Sosa - Discharge Diagnosis(es) (1) Poorly controlled diabetes mellitus Current Visit: Yes Status: Acute (2) Central venous catheter in place, permanent Current Visit: Yes Status: Acute (3) Mechanical complication of venous catheter Current Visit: Yes Status: Acute (4) Noncompliance with diabetes treatment Current Visit: Yes Status: Acute (5) Diabetes mellitus due to underlying condition with hyperglycemia Current Visit: Yes Status: Acute (6) History of antineoplastic chemotherapy Current Visit: Yes Status: Acute (7) Pancreatic cancer Current Visit: Yes Status: Acute (8) Pancreatic insufficiency Current Visit: Yes Status: Acute (9) Atelectasis, left Current Visit: Yes Status: Acute Hospital Course: The patient is a 73-year-old female who had a port placement 2 weeks ago. She then had mechanical malfunction of the port where the tubing was dislodged hence requiring a new placement of a port including removal of the old port. Preoperatively, patient was found to have blood sugars well over 360. Postp rocedure, blood sugars were still elevated despite given insulin in the perioperative area. With her recent procedure including now elevated risk for infection, patient was admitted to control her diabetes as she has been symptomatic. Additionally, preexistent chest x-ray showed atelectasis along the left lower lobe which is pre-existing to the current admission. Consultation with medicine was performed for immediate control of her blood sugars which came down from over 350 to 200s. Diabetes education was performed. Patient then disclosed she was drinking high sugary beverages and is nonc ompliant with her diabetes care. Family also confirms that the patient has not been taking her diabetic medications. Patient was advised including educated with family for compliance of diabetes c are to minimize risk for perioperative complications. Patient is directed to follow up with legal adviser immediately post hospitalization. New prescription for insulin and blood sugar glucose monitor given to patient. Chemotherapy management per oncologist. Final chest x-ray confirmed appropriate placement of Mediport. Patient was medically and surgically stable for discharge. Pertinent Studies: X-ray confirmed appropriate placement of Mediport with pre-existing left lower lobe atelectasis Procedures: Mediport placement with removal of old right internal jugular venous port Patient Condition at Discharge: Stable Plan - Discharge Summary Discharge Rx Participant: No New Discharge Prescriptions: New Insulin Glargine,Hum.rec.anlog [Basaglar Kwikpen U-100] 20 unit SQ QAM #1 pen Insulin Aspart [NovoLOG Flexpen] See Protocol SQ DIRECTED #3 pen Continue metFORMIN HCL [Glucophage] 500 mg PO BID Lipase/Protease/Amylase [Whit Quigley 12,000 Units Capsule] 12,000 units PO AC- BID Levothyroxine Sodium [Synthroid] 50 mcg PO DAILY Discharge Medication List Lipase/Protease/Amylase [Whit Quigley 12,000 Units Capsule] 12,000 units PO AC-BID 08/14/18 [History] metFORMIN HCL [Glucophage] 500 mg PO BID 08/14/18 [History] Levothyroxine Sodium [Synthroid] 50 mcg PO DAILY 08/28/18 [History] Insulin Aspart [NovoLOG Flexpen] See Protocol SQ DIRECTED #3 pen 09/02/18 [Rx] Insulin Glargine,Hum.rec.anlog [Basaglar Kwikpen U-100] 20 unit SQ QAM #1 pen 09/02/18 [Rx] Follow up Appointment(s)/Referral(s): Melvin Sosa Jr, DO [Primary Care Provider] - 2 Weeks (Patient to call Dr. Sosa's office Tuesday to schedule a follow up appointment. The office is closed at time of discharge. ) Mayelin Johnson MD [STAFF PHYSICIAN] - As Needed (Patient to call Dr. Johnson's office Tuesday to schedule a follow up appointment. The office is closed at time of discharge. ) Remi Messina MD [STAFF PHYSICIAN] - 3 Days (Patient to call Dr. Messina's office Tuesday to schedule a follow up appointment. The office is closed at time of discharge. ) Patient Instructions/Handouts: Insulin Aspart Protamine/Insulin Aspart (By injection), Insulin Glargine (By injection), Colorectal Cancer (DC), Implanted Venous Access Port (DC), How to Care for Your Implanted Venous Access Port (DC), Type 2 Diabetes in the Older Adult (DC) Activity/Diet/Wound Care/Special Instructions: May shower. No bathtub soaks. Avoid high sugar foods. Remove dressing after 09/04/18. Take tylenol for pain. Discharge Disposition: HOME SELF-CARE
[2018-09-02] MEDS ORDERED: INSULIN DETEMIR (LEVEMIR) 100 UNIT/ML SYR SQ SCH (11:00)
--- NOTE | 2018-09-02 11:14 | XR ---
EXAMINATION TYPE: XR chest 2V DATE OF EXAM: 09/02/2018 HISTORY: suspicious finding prior exam. REFERENCE: Previous study dated 09/01/2018. FINDINGS: Right internal jugular catheter remains in place. Its tip is in the superior vena cava. Heart size upper limits of normal. There is improved aeration at the left lung base. I suspect a small hiatal hernia behind the heart on the left. There is continued prominence of the right hilum. IMPRESSION: 1. IMPROVED AERATION, LEFT LUNG BASE. 2. CONTINUED PROMINENCE, RIGHT HILUM. 3. I SUSPECT A SMALL HIATAL HERNIA BEHIND THE LEFT HEART.
--- NOTE | 2018-09-02 11:28 | P.PN ---
Subjective This is a pleasant 73-year-old female, patient of my partner Dr. Melvin Sosa, and our nurse practitioner, who underwent removal of malfunctioning right internal jugular vein Port-A-Cath and placement of a new right internal jugular port. She has a history of colorectal cancer and a colostomy. On routine follow-up for this, she was found to have pancreatic carcinoma. She is to have chemotherapy and had the catheter placed in both her chest wall and in the right jugular. The most recent right jugular catheter failed. Dr. Mayelin Johnson and replace that today. Patient was on metformin for type 2 diabetes. She was found to have elevated glucose after procedure. She is admitted for further treatment with diabetes and uncontrolled hyperglycemia. Patient denies any chest pains, pressures, shortness breath, nausea, or vomiting, malfunction of her colostomy, or other complaint 09/02/2018: Patient was seen and examined today. Sugars are reviewed. Her hemoglobin A1c was 10.2, indicating this is been a long ongoing process of hype rglycemia, not directly related to her recent surgery and/or IV fluids. She was started on a short acting insulin scale. I spoke with Dr. Diaz, who works for me to an abnormal chest x-ray she had recently. A repeat x-ray has been ordered for this morning. Objective - Vital Signs Vital signs: Vital Signs Temp 97.9 F 09/02/18 05:00 Pulse 84 09/02/18 05:00 Resp 16 09/02/18 05:00 BP 136/78 09/02/18 05:00 Pulse Ox 94 L 09/02/18 05:00 Intake & Output 09/01/18 09/02/18 09/02/18 18:59 06:59 18:59 Intake Total 450 Output Total 5 Balance 445 Intake: IV 450 Output: Estimated Blood Loss 5 Other: Voiding Method Toilet Toilet # Voids 2 1 - Exam General: The patient is awake and alert, in no distress, and does not appear acutely ill. Neck: The neck is supple, there is no thyromegaly, lymphadenopathy, tenderness or JVD. Cardiovascular: S1S2 is normal, There is a regular rate and rhythm. No murmur, rub or gallop is appreciated. Respiratory: Lungs are clear to auscultation bilaterally, respirations are non -labored, breath sounds are equal. Gastrointestinal: Soft, non-distended, non-tender abdomen without masses or organomegaly noted. There is no rebound or guarding present. Bowel sounds are unremarkable. Musculoskeletal: Normal ROM, no tenderness, There is no pedal edema. There is no calf tenderness or swelling. No cords were appreciated. Neurological: CN II-XII intact, there are no obvious motor or sensory deficits. Coordination appears grossly intact. Speech is normal. Skin: Skin is warm and dry and no rashes or lesions are noted. - Labs CBC & Chem 7: 09/02/18 07:20 09/02/18 07:20 Labs: Abnormal Lab Results - Last 24 Hours (Table) 09/01/18 09/01/18 09/01/18 Range/Units 10:58 10:58 17:08 WBC (3.8-10.6) k/uL Neutrophils # (1.3-7.7) k/uL Sodium 135 L (137-145) mmol/L BUN (7-17) mg/dL Creatinine 0.45 L (0.52-1.04) mg/dL Glucose 248 H (74-99) mg/dL POC Glucose (mg/dL) 293 H (75-99) mg/dL Hemoglobin A1c 10.2 H (4.0-6.0) % Alkaline Phosphatase (38-126) U/L Total Protein (6.3-8.2) g/dL Albumin (3.5-5.0) g/dL Amylase (30-110) U/L Lipase (23-300) U/L 09/01/18 09/02/18 09/02/18 Range/Units 21:05 06:51 07:20 WBC (3.8-10.6) k/uL Neutrophils # (1.3-7.7) k/uL Sodium 133 L (137-145) mmol/L BUN 20 H (7-17) mg/dL Creatinine 0.43 L (0.52-1.04) mg/dL Glucose 204 H (74-99) mg/dL POC Glucose (mg/dL) 328 H 199 H (75-99) mg/dL Hemoglobin A1c (4.0-6.0) % Alkaline Phosphatase 348 H (38-126) U/L Total Protein 5.6 L (6.3-8.2) g/dL Albumin 2.9 L (3.5-5.0) g/dL Amylase <30 L (30-110) U/L Lipase 11 L (23-300) U/L 09/02/18 Range/Units 07:20 WBC 10.7 H (3.8-10.6) k/uL Neutrophils # 8.4 H (1.3-7.7) k/uL Sodium (137-145) mmol/L BUN (7-17) mg/dL Creatinine (0.52-1.04) mg/dL Glucose (74-99) mg/dL POC Glucose (mg/dL) (75-99) mg/dL Hemoglobin A1c (4.0-6.0) % Alkaline Phosphatase (38-126) U/L Total Protein (6.3-8.2) g/dL Albumin (3.5-5.0) g/dL Amylase (30-110) U/L Lipase (23-300) U/L Assessment and Plan (1) Diabetes mellitus due to underlying condition with hyperglycemia Current Visit: Yes Status: Acute Code(s): E08.65 - DIABETES DUE TO UNDERLYING CONDITION W HYPERGLYCEMIA SNOMED Code(s): 6994563 (2) Morbid (severe) obesity due to excess calories Current Visit: Yes Status: Acute Code(s): E66.01 - MORBID (SEVERE) OBESITY DUE TO EXCESS CALORIES SNOMED Code(s): 172991111 (3) History of antineoplastic chemotherapy Current Visit: Yes Status: Acute Code(s): Z92.21 - PERSONAL HISTORY OF ANTINEOPLASTIC CHEMOTHERAPY SNOMED Code(s): 898694885442417 (4) History of colon cancer Current Visit: Yes Status: Acute Code(s): Z85.038 - PERSONAL HISTORY OF MALIGNANT NEOPLASM OF LARGE INTESTINE SNOMED Code(s): 825876387 (5) Pancreatic cancer Current Visit: Yes Status: Acute Code(s): C25.9 - MALIGNANT NEOPLASM OF PANCREAS, UNSPECIFIED SNOMED Code(s): 848176780 (6) History of radiation therapy Current Visit: Yes Status: Acute Code(s): Z92.3 - PERSONAL HISTORY OF IRRADIATION SNOMED Code(s): 221226993 (7) Pancreatic insufficiency Current Visit: Yes Status: Acute Code(s): K86.89 - OTHER SPECIFIED DISEASES OF PANCREAS SNOMED Code(s): 04412454 (8) Hypothyroidism Current Visit: Yes Status: Acute Code(s): E03.9 - HYPOTHYROIDISM, UNSPECIFIED SNOMED Code(s): 10176291 Plan: She is medically cleared for discharge. We'll continue NovoLog insulin, 3 units plus scale before each meal, and scale only at bedtime, I'll add glargine insulin, 20 units in the a.m. She'll follow-up in the office next several days. She'll continue her metformin. She'll follow-up with regarding her chemotherapy.
[2018-09-02 12:03] LABS: Glucose,Whole Blood 352 mg/dL (75-99)
[2018-09-02 12:13] VITALS: BMI 33.2
[2018-09-02 12:34] VITALS: BP 112/68; PULSE 92; RESP 15; TEMP 96.9
== END 2018-09-02 14:00 | disposition home or self-care (01) ==
LOC: OR 06:08 → 3NMEDONC 10:36 → OR 09-02 14:00
PROVIDERS: ATTEND Surgery Plastic and Reconstructive Surgery
DX: T82.598A Other mechanical complication of other cardiac and vascular devices and implants, initial encounter (principal); C25.9 Malignant neoplasm of pancreas, unspecified; M19.90 Unspecified osteoarthritis, unspecified site; E07.9 Disorder of thyroid, unspecified; F41.9 Anxiety disorder, unspecified; E08.65 Diabetes mellitus due to underlying condition with hyperglycemia; E66.01 Morbid (severe) obesity due to excess calories; Z68.33 Body mass index [BMI] 33.0-33.9, adult; K86.89 Other specified diseases of pancreas; I11.9 Hypertensive heart disease without heart failure; E03.9 Hypothyroidism, unspecified; Z85.038 Personal history of other malignant neoplasm of large intestine; Z92.21 Personal history of antineoplastic chemotherapy; Z92.3 Personal history of irradiation; Z93.3 Colostomy status; Z80.1 Family history of malignant neoplasm of trachea, bronchus and lung; Z80.0 Family history of malignant neoplasm of digestive organs; Z80.3 Family history of malignant neoplasm of breast; Z80.49 Family history of malignant neoplasm of other genital organs; Z79.84 Long term (current) use of oral hypoglycemic drugs; Z79.890 Hormone replacement therapy; Z79.899 Other long term (current) drug therapy; Z88.0 Allergy status to penicillin
CPT/HCPCS: 36590; 36561; 99283; 36415; 80053; 80048; 82150; 83690; 83735; 85025; 83036; 77001; 71045; 71046; C1788; J2250; J1644; J1642; J1100; J2405; J0690; J3010

== ENCOUNTER 2018-09-20 08:50 | Inpatient (IN) | payer MEDICARE, BC ==
[2018-09-20] MEDS ORDERED: SODIUM CHLORIDE 0.9% 1,000 ML IV STA (08:55)
--- NOTE | 2018-09-20 08:59 | ED ---
General Adult HPI - General Stated complaint: WEAKNESS Time Seen by Provider: 09/20/18 08:54 Source: patient, EMS, RN notes reviewed, old records reviewed - History of Present Illness Initial comments: 73-year-old female presenting with generalized weakness. Patient had an appointment with her primary care physician this morning however she was unable to maintain this appointment due to increased generalized weakness. Patient past. Has history of colon cancer, colostomy, diabetes, and history of abdominal cancer undergoing chemotherapy. Her last treatment was one week ago. She's had increased nausea and vomiting. Denies fever but states she has been quite chilled. History is somewhat limited secondary to the patient's lethargy. Denies any pain complaints. - Related Data Home Medications Medication Instructions Recorded Confirmed Lipase/Protease/Amylase [Creon Dr 12,000 units PO AC-TID 08/14/18 09/20/18 12,000 Units Capsule] metFORMIN HCL [Glucophage] 500 mg PO DAILY 08/14/18 09/20/18 Levothyroxine Sodium [Synthroid] 50 mcg PO DAILY 08/28/18 09/20/18 Atorvastatin [Lipitor] 20 mg PO DAILY 09/20/18 09/20/18 Insulin Glargine,Hum.rec.anlog 19 unit SQ QAM 09/20/18 09/20/18 [Basaglar Kwikpen U-100] Previous Rx's Medication Instructions Recorded Insulin Aspart [NovoLOG Flexpen] See Protocol SQ DIRECTED #3 pen 09/02/18 Allergies Allergy/AdvReac Type Severity Reaction Status Date / Time Penicillins AdvReac Unknown Nausea & Verified 09/20/18 10:03 Vomiting Review of Systems ROS Statement: Those systems with pertinent positive or pertinent negative responses have been documented in the HPI. ROS Other: All systems not noted in ROS Statement are negative. Past Medical History Past Medical History: Cancer, Diabetes Mellitus, Osteoarthritis (OA), Thyroid Disorder Additional Past Medical History / Comment(s): HX OF COLO-RECTAL CANCER WITH CH EMO & RADIATION( 1997)- HAS COLOSTOMY. Pancreatic cancer (dx 08/01)fs History of Any Multi-Drug Resistant Organisms: None Reported Past Surgical History: Appendectomy, Bowel Resection, Joint Replacement, Tonsillectomy Additional Past Surgical History / Comment(s): MISCARRIAGE WITH D & C, LEFT BREAST BX, COLOSTOMY, WENDY TOTAL KNEES, "stent placed in tube from liver to pancreas", WENDY. CATARACT REMOVAL, revision of mediport 09/01/18 Past Anesthesia/Blood Transfusion Reactions: No Reported Reaction Past Psychological History: Anxiety Smoking Status: Never smoker Past Alcohol Use History: Rare Past Drug Use History: None Reported - Past Family History Father Family Medical History: Cancer Additional Family Medical History / Comment(s): LUNG CA. GRANDMOTHER- COLORECTAL CANCER. GRANDMOTHER- BREAST CANCER Mother Family Medical History: Neurologic Disorder Additional Family Medical History / Comment(s): "she from alzheimers" Brother(s) Family Medical History: Cancer Additional Family Medical History / Comment(s): CA: colorectal- Sister(s) Family Medical History: Cancer Additional Family Medical History / Comment(s): CA: cervical ca caused by Diethylstilbestrol (VANESSA) that mother received while with her General Exam General appearance: in no apparent distress, lethargic Head exam: Present: atraumatic, normocephalic Eye exam: Present: normal appearance, PERRL ENT exam: Present: mucous membranes dry, other (Oral thrush) Neck exam: Present: normal inspection. Absent: tenderness, meningismus Respiratory exam: Present: respiratory distress, decreased breath sounds, other (Mildly tachypneic) Cardiovascular Exam: Present: normal rhythm, tachycardia GI/Abdominal exam: Present: soft, distended (Anterior abdominal hernia, colostomy, no tenderness to palpation.). Absent: tenderness, guarding, rebound Extremities exam: Present: normal inspection, normal capillary refill. Absent: calf tenderness Neurological exam: Present: alert. Absent: motor sensory deficit Skin exam: Present: warm, dry, intact. Absent: cyanosis, diaphoretic Course Vital Signs 09/20/18 08:51 Temperature 98.2 F Pulse Rate 101 H Respiratory 18 Rate Blood Pressure 130/76 O2 Sat by Pulse 97 Oximetry - Reevaluation(s) Reevaluation #1: 09/20/18 10:39 Patient reevaluated after hydration, she is more alert, no pain complaints, no headache, no reported fever. EKG Findings - EKG Comments: EKG Findings:: EKG: Normal sinus rhythm, septal infarct, rate of 99, DC interval 124, QRS duration 92, QTC 420, no ST segment changes Medical Decision Making - Medical Decision Making 73-year-old female presenting with generalized weakness, dehydration and lethargy. On exam patient is significantly dehydrated, dry mucous membranes, poor skin turgor, delayed cap refill. She is 7 days status post chemotherapy. She has pancytopenia, white blood cell count 400, platelets 17, hemoglobin 10. I did discuss case with patient's primary care physician Dr. Phillip, and patient's covering oncologist Dr. Spears, recommends holding antibiotics at this time. Did recommend IV hydration and patient may require inpatient stay for continuous IV hydration. Her next complaint chemotherapy is September 25. After initial IV hydration and reassess the patient, she is somewhat improved however continues to be quite weak. She prefers inpatient stay. She will be for continuous IV hydration, reevaluation and consult to oncology. - Lab Data Result diagrams: 09/20/18 09:05 09/20/18 09:05 Lab Results 09/20/18 09/20/18 09/20/18 Range/Units 09:05 09:05 09:05 WBC 0.4 L* (3.8-10.6) k/uL RBC 3.83 (3.80-5.40) m/uL Hgb 10.2 L (11.4-16.0) gm/dL Hct 31.4 L (34.0-46.0) % MCV 81.9 (80.0-100.0) fL MCH 26.7 (25.0-35.0) pg MCHC 32.5 (31.0-37.0) g/dL RDW 14.1 (11.5-15.5) % Plt Count 17 L* D (150-450) k/uL Neutrophils # PROFESSOR [employer] Differential Comment Manual Slide Review Performed RBC Morphology Normal PT (9.0-12.0) sec INR (<1.2) APTT (22.0-30.0) sec Sodium 135 L (137-145) mmol/L Potassium 3.8 (3.5-5.1) mmol/L Chloride 100 (98-107) mmol/L Carbon Dioxide 28 (22-30) mmol/L Anion Gap 7 mmol/L BUN 25 H (7-17) mg/dL Creatinine 0.49 L (0.52-1.04) mg/dL Est GFR (CKD-EPI)AfAm >90 (>60 ml/min/1.73 sqM) Est GFR (CKD-EPI)NonAf >90 (>60 ml/min/1.73 sqM) Glucose 90 (74-99) mg/dL Plasma Lactic Acid [place] 1.3 (0.7-2.0) mmol/L Calcium 9.0 (8.4-10.2) mg/dL Magnesium 1.5 L (1.6-2.3) mg/dL Total Bilirubin 1.7 H (0.2-1.3) mg/dL AST 17 (14-36) U/L ALT 34 (9-52) U/L Alkaline Phosphatase 275 H (38-126) U/L Total Protein 5.4 L (6.3-8.2) g/dL Albumin 2.4 L (3.5-5.0) g/dL Urine Color Urine Appearance (Clear) Urine pH (5.0-8.0) Ur Specific [place] (1.001-1.035) Urine Protein (Negative) Urine Glucose (UA) (Negative) Urine Ketones (Negative) Urine Blood (Negative) Urine Nitrite (Negative) Urine Bilirubin (Negative) Urine Urobilinogen (<2.0) mg/dL Ur Leukocyte Esterase (Negative) Urine RBC (0-5) /hpf Urine WBC (0-5) /hpf Ur Squamous Epith Cells (0-4) /hpf Amorphous Sediment (None) /hpf Urine Bacteria (None) /hpf Urine Mucus (None) /hpf 09/20/18 09/20/18 Range/Units 09:05 09:05 WBC (3.8-10.6) k/uL RBC (3.80-5.40) m/uL Hgb (11.4-16.0) gm/dL Hct (34.0-46.0) % MCV (80.0-100.0) fL MCH (25.0-35.0) pg MCHC (31.0-37.0) g/dL RDW (11.5-15.5) % Plt Count (150-450) k/uL Neutrophils # Differential Comment Manual Slide Review RBC Morphology PT 11.9 (9.0-12.0) sec INR 1.1 (<1.2) APTT 25.1 (22.0-30.0) sec Sodium (137-145) mmol/L Potassium (3.5-5.1) mmol/L Chloride (98-107) mmol/L Carbon Dioxide (22-30) mmol/L Anion Gap mmol/L BUN (7-17) mg/dL Creatinine (0.52-1.04) mg/dL Est GFR (CKD-EPI)AfAm (>60 ml/min/1.73 sqM) Est GFR (CKD-EPI)NonAf (>60 ml/min/1.73 sqM) Glucose (74-99) mg/dL Plasma Lactic Acid [place] (0.7-2.0) mmol/L Calcium (8.4-10.2) mg/dL Magnesium (1.6-2.3) mg/dL Total Bilirubin (0.2-1.3) mg/dL AST (14-36) U/L ALT (9-52) U/L Alkaline Phosphatase (38-126) U/L Total Protein (6.3-8.2) g/dL Albumin (3.5-5.0) g/dL Urine Color Yellow Urine Appearance Cloudy H (Clear) Urine pH 6.0 (5.0-8.0) Ur Specific [place] 1.024 (1.001-1.035) Urine Protein 1+ H (Negative) Urine Glucose (UA) Negative (Negative) Urine Ketones Negative (Negative) Urine Blood Negative (Negative) Urine Nitrite Negative (Negative) Urine Bilirubin Negative (Negative) Urine Urobilinogen 3.0 (<2.0) mg/dL Ur Leukocyte Esterase Negative (Negative) Urine RBC 1 (0-5) /hpf Urine WBC 4 (0-5) /hpf Ur Squamous Epith Cells 8 H (0-4) /hpf Amorphous Sediment Few H (None) /hpf Urine Bacteria Occasional H (None) /hpf Urine Mucus Rare H (None) /hpf Disposition Clinical Impression: Dehydration, Pancreatic cancer, Pancytopenia due to chemotherapy Disposition: ADMITTED IP TO THIS HOSP Condition: Stable Is patient prescribed a controlled substance at d/c from ED?: No Referrals: [place] Phillip MD [Primary Care Provider] - 1-2 days Time of Disposition: 11:35
[2018-09-20 09:30] LABS: HCT 31.4 % (34.0-46.0); HGB 10.2 gm/dL (11.4-16.0); MCH 26.7 pg (25.0-35.0); MCHC 32.5 g/dL (31.0-37.0); MCV 81.9 fL (80.0-100.0); Mean Platelet Volume 9.4; RBC 3.83 m/uL (3.80-5.40); RDW 14.1 % (11.5-15.5)
[2018-09-20 09:35] LABS: ALT 34 U/L (9-52); AST 17 U/L (14-36); Albumin 2.4 g/dL (3.5-5.0); Alkaline Phosphatase 275 U/L (38-126); Anion Gap 7 mmol/L; Blood Urea Nitrogen 25 mg/dL (7-17); Carbon Dioxide 28 mmol/L (22-30); Chloride 100 mmol/L (98-107); Glucose 90 mg/dL (74-99); Magnesium 1.5 mg/dL (1.6-2.3); Potassium 3.8 mmol/L (3.5-5.1); Sodium 135 mmol/L (137-145); Total Bilirubin 1.7 mg/dL (0.2-1.3); Total Protein 5.4 g/dL (6.3-8.2)
[2018-09-20 09:42] LABS: Platelet Count 17 k/uL (150-450); WBC 0.4 k/uL (3.8-10.6)
[2018-09-20 09:46] LABS: INR 1.1 (<1.2); Partial Thromboplastin Time 25.1 sec (22.0-30.0); Prothrombin Time 11.9 sec (9.0-12.0)
--- NOTE | 2018-09-20 10:01 | XR ---
EXAMINATION TYPE: XR chest 2V DATE OF EXAM: 09/20/2018 COMPARISON: Chest x-ray September 02, 2018. CT July 10, 2018. HISTORY: Weakness today. TECHNIQUE: Frontal and lateral views of the chest are obtained. FINDINGS: There is stable right internal jugular Mediport catheter. Low lung volumes are present with new left basilar opacity. Right lung remains clear.. The cardiac silhouette size remains mildly enl arged. The osseous structures are intact. IMPRESSION: Mild cardiomegaly and diminished inspiration on current study with new small left pleura l effusion and left basilar acute infiltrate and/or atelectasis.
[2018-09-20 10:27] LABS: Amorphous Sediment,Urine Few /hpf; Appearance,Urine Cloudy (Clear); Bacteria,Urine Occasional /hpf; Bilirubin,Urine Negative (Negative); Blood,Urine Negative (Negative); Color,Urine Yellow; Glucose,Urine (UA) Negative (Negative); Ketones,Urine Negative (Negative); Leukocyte Esterase,Urine Negative (Negative); Mucus,Urine Rare /hpf; Nitrite,Urine Negative (Negative); Protein,Urine 1+ (Negative); RBC,Urine 1 /hpf (0-5); Specific Gravity,Urine 1.024 (1.001-1.035); Squamous Epithelial Cell,Urine 8 /hpf (0-4); WBC,Urine 4 /hpf (0-5)
[2018-09-20] MEDS ORDERED: VANCOMYCIN IV PER PHARMACY 1 EACH MISC MISCELLANE PRN (10:34)
[2018-09-20] MEDS ORDERED: CEFEPIME 2 GM in SODIUM CHLORIDE 0.9% 100 ML IVPB STA (10:34)
[2018-09-20] MEDS ORDERED: VANCOMYCIN 1,500 MG in SODIUM CHLORIDE 0.9% 250 ML IVPB STA (10:39)
[2018-09-20] MEDS ORDERED: SODIUM CHLORIDE 0.9% 500 ML 500 ML IV ONE (11:19)
[2018-09-20] MEDS: SODIUM CHLORIDE 0.9% 1,000 ML IV SCH ×2 (12:00→20:39)
[2018-09-20] MEDS ORDERED: ACETAMINOPHEN TAB 325 MG TAB PO PRN (13:10)
[2018-09-20] MEDS ORDERED: NALOXONE 0.4 MG/ML 1 ML VIAL IV PRN (13:10)
[2018-09-20] MEDS ORDERED: CEFEPIME 2 GM in SODIUM CHLORIDE 0.9% 100 ML IVPB SCH (16:00)
[2018-09-20 16:53] LABS: Glucose,Whole Blood 99 mg/dL (75-99)
[2018-09-20 20:36] LABS: Glucose,Whole Blood 84 mg/dL (75-99)
[2018-09-20] MEDS: INSULIN ASPART (NovoLOG) 100 UNIT/ML VIAL SQ SCH (20:36)
[2018-09-20] MEDS ORDERED: VANCOMYCIN 1,500 MG in SODIUM CHLORIDE 0.9% 250 ML IVPB SCH (21:00)
[2018-09-21] MEDS: SODIUM CHLORIDE 0.9% 1,000 ML IV SCH ×2 (06:12→17:03)
[2018-09-21] MEDS: LEVOTHYROXINE 50 MCG TAB PO SCH (06:12)
--- NOTE | 2018-09-21 07:04 | P.CONS ---
<Idalmis Langston - Last Filed: 09/21/18 21:53> History of Present Illness - Reason for Consult Consult date: 09/20/18 Pancreatic Cancer Requesting physician: Minh Hair - Chief Complaint Weakness - History of Present Illness Ms Irizarry is a pleasant 73 year old female patient who is currently under the care of Dr. Lynch for her recent diagnosis of pancreatic cancer. She is Status Post folfox Chemotherapy cycle one with GCSF on 09/15/18. She has a known history of DM, colorectal cancer (chemo and radiation in past), arthritis, Hyperlipidemia, hypertension, COPD and anxiety/depression. She presented to emergency with complaints of progressive weakness, dehydration, mental status changes (lethargy likely from dehydration and/or infectious etiology), and increased ostomy output and emesis. Since admission emesis resolved and ostomy output is decreasing. She also appeared to exhibit an increased respiratory effort. Her daughter stated that the day after her pump from chemo was removed she had nausea, vomiting, and diarrhea. She became weak and fatigue quickly and this seemed to increase over the next couple days in which she was brought into emergency. She has had a decreased appetite, not eating much, severe fatigue, and when her daughter could not easily awaken her she felt she should be further evaluated at the hospotal. On admission her blood counts have decreased drastically, neutropenic although denies objective fevers does admit to subjective evidenced with chills and sweats. Her admission WBC = 0.4, platelets = 17, hgb = 10.2, INR = 1.1. Sodium= 135, K = 3.8, BUN= 25, creat = 0.49. Magnesium = 1.5, total bili =1.7,= albumin =2.4. Vega cultures urine blood and chest ray pending IV fluid hydration initiated. Review of Systems A 14 point review of systems assessed and completed and all negative except HPI Past Medical History Past Medical History: Cancer, Diabetes Mellitus, Thyroid Disorder Additional Past Medical History / Comment(s): 07/2018 diagnosed with pancreatic cancer and is receiving chemotherapy with last time about one week ago, also newly diagnosed IDDM type II, past colorectal cancer with chemo and radiation/colostomy in 1997, hypothyroid History of Any Multi-Drug Resistant Organisms: None Reported Past Surgical History: Appendectomy, Bowel Resection, Joint Replacement, Tonsillectomy Additional Past Surgical History / Comment(s): Mediport then removal of mediport and new port inserted, stent between liver/pancreas at [facility], A/P resection rectum/colostomy, paracolostomy hernia repair, colonoscopies/polypectomies, D&C d/t miscarriage, L breast benign bx, bilateral total knee replacements, bilateral cataract removals/lens implants. Past Anesthesia/Blood Transfusion Reactions: No Reported Reaction, Motion Sickness Smoking Status: Never smoker - Past Family History Father Family Medical History: Cancer Additional Family Medical History / Comment(s): LUNG CA. GRANDMOTHER- COLORECTAL CANCER. GRANDMOTHER- BREAST CANCER Mother Family Medical History: Neurologic Disorder Additional Family Medical History / Comment(s): "she from alzheimers" Brother(s) Family Medical History: Cancer Additional Family Medical History / Comment(s): CA: colorectal- Sister(s) Family Medical History: Cancer Additional Family Medical History / Comment(s): CA: cervical ca caused by Diethylstilbestrol (VANESSA) that mother received while with her Medications and Allergies Home Medications Medication Instructions Recorded Confirmed Type Lipase/Protease/Amylase [Whit Quigley 12,000 units PO AC-TID 08/14/18 09/20/18 History 12,000 Units Capsule] Levothyroxine Sodium [Synthroid] 50 mcg PO DAILY 08/28/18 09/20/18 History Insulin Aspart [NovoLOG Flexpen] See Protocol SQ DIRECTED #3 pen 09/02/18 09/20/18 Rx Insulin Glargine,Hum.rec.anlog 19 unit SQ QAM 09/20/18 09/20/18 History [Basaglar Kwikpen U-100] Acetaminophen Tab [Tylenol] 650 mg PO Q6HR PRN tab 09/24/18 Rx Clotrimazole Destiny [Mycelex 10 mg MUCOUS MEM 5XD destiny 09/24/18 Rx Destiny] Filgrastim-Sndz [Zarxio] 480 mcg SQ DAILY syringe 09/24/18 Rx INSULIN ASPART (NovoLOG) [NovoLOG 0 unit SQ ACHS vial 09/24/18 Rx (formulary)] Insulin Detemir (Levemir) [Levemir] 19 unit SQ QAM syr 09/24/18 Rx Lipase/Protease/Amylase [Zenpep Dr 2 each PO AC-TID capsule. 09/24/18 Rx 5,000 Unit Capsule] cefTRIAXone [Rocephin] 2 gm IVPB Q24HR vial 09/24/18 Rx Allergies Allergy/AdvReac Type Severity Reaction Status Date / Time Penicillins AdvReac Unknown Nausea & Verified 09/20/18 10:03 Vomiting Physical Exam Vitals: Vital Signs Temp Pulse Pulse Resp BP BP Pulse Ox 09/20/18 21:16 98.3 F 105 H 16 112/73 95 09/20/18 14:42 98.3 F 99 16 138/81 96 09/20/18 14:10 98.8 F 101 H 24 128/70 99 09/20/18 14:00 101 H 22 128/70 98 09/20/18 13:50 101 H 26 H 128/70 98 09/20/18 13:40 102 H 21 128/70 98 09/20/18 13:30 99 23 128/70 97 09/20/18 13:20 98 23 128/70 98 09/20/18 13:10 102 H 21 128/70 98 09/20/18 13:00 96 23 128/70 98 09/20/18 12:50 97 23 128/70 98 09/20/18 12:40 98 20 128/70 98 09/20/18 12:30 99 22 128/70 98 09/20/18 12:20 98 23 128/70 98 09/20/18 12:10 100 23 128/70 99 09/20/18 12:00 99 23 128/70 98 09/20/18 11:59 101 H 22 99 09/20/18 08:51 98.2 F 101 H 18 130/76 97 Intake and Output 09/20/18 09/20/18 09/20/18 06:59 14:59 22:59 Intake Total 850 Balance 850 Intake: Intake, IV Titration 850 Amount Sodium Chloride 0.9% 1, 100 000 ml @ 100 mls/hr IV . Q10H [facility] Rx#:[id number] Sodium Chloride 0.9% 500 500 ml 500 ml @ 999 mls/hr IV .Q31M ONE Rx#:[id number] Vancomycin 1,500 mg In 250 Sodium Chloride 0.9% 250 ml @ 125 mls/hr IVPB ONCE STA Rx#:[id number] Other: Weight 77.111 kg Gen: Alert, No Acute Distress Mucous Membranes: Oral Thrush and Dry Neck: Supple No lymphadenopathy palpable Heart: Tachycardia, Reg Lungs: No increased respiratory effort, DIminished Bibasilar Abdomen: Soft, Tender Extremities: No rashes, skin Dry Neuro: No sensory or motor deficits Results CBC & Chem 7: 09/21/18 08:47 09/21/18 08:47 Labs: Abnormal Lab Results - Last 24 Hours (Table) 09/20/18 09/20/18 09/20/18 Range/Units 09:05 09:05 09:05 WBC 0.4 L* (3.8-10.6) k/uL Hgb 10.2 L (11.4-16.0) gm/dL Hct 31.4 L (34.0-46.0) % Plt Count 17 L* D (150-450) k/uL Sodium 135 L (137-145) mmol/L BUN 25 H (7-17) mg/dL Creatinine 0.49 L (0.52-1.04) mg/dL Magnesium 1.5 L (1.6-2.3) mg/dL Total Bilirubin 1.7 H (0.2-1.3) mg/dL Alkaline Phosphatase 275 H (38-126) U/L Total Protein 5.4 L (6.3-8.2) g/dL Albumin 2.4 L (3.5-5.0) g/dL Urine Appearance Cloudy H (Clear) Urine Protein 1+ H (Negative) Ur Squamous Epith Cells 8 H (0-4) /hpf Amorphous Sediment Few H (None) /hpf Urine Bacteria Occasional H (None) /hpf Urine Mucus Rare H (None) /hpf Microbiology - Last 24 Hours (Table) 09/20/18 09:05 Urine Culture - Preliminary Urine,Voided Chest x-ray: report reviewed Assessment and Plan Plan: Assessment and Recommendations: 1. Pancytopenia: Secondary to Chemotherapy +/- Infectious Etiology: Neutropenia - Monitor Daily CBC with Differential - No GCSF required at this time as she received post chemotherapy on 09/15/18, if still neutropenic on 09/20/18 may initiate short acting GCSF - Zarxio - Afebrile through hospital stay, Awaiting Stool studies prior to antibiotics - Vega-Cultures Pending, Chest Xray reviewed Anemia: - No transfusion required today - Transfuse for hemoglobin less than 7 Thrombocytopenia: - Monitor closely for signs or symptoms of bleeding - Transfuse SDP for platleet count less then 15 (if infectious etiology and neutropenic), less than 10 if no infectious etiology found, and less than 50K if bleeding - Platelets 17 today, no transfusion required - Hold anticoagulation at this time 2. Pancreatic Cancer - Status Post FOLFOX Cycle one on 09/15/18 -Chemotherapy currently on Hold until patient counts recover and infectious etiology is ruled out - Will need to follow up with Dr. Lynch as outpatient to determine dose reduction and treatment plan 3. Increased Ostomy Output-Diarrhea and Emesis Post Chemotherapy: - Obtain Stool Culture and C-Diff 4. Dehydration: - IV Fluid Hydration - Monitor electrolytes and replace as needed 5. Mental Status Changes, Increased Lethargy: - Secondary to dehydration 6. Weakness and Debility likely secondary to Dehydration and decreased PO intake: - PT/OT - Fall and Safety Precautions 7. Severe Protein Calorie Malnutrition - Dieticien and increase PO Protein Intake 8. Community Acquired Pneumonia: - Chest Xray Reviewed Acute Infiltrated, consistent with a possible pneumonia - Cefepime Ordered and Jeffy Langston FAMILY PARTNER <Tory,Paul - Last Filed: 09/24/18 18:30> Physical Exam Vitals: Vital Signs Temp Pulse Resp BP Pulse Ox 09/24/18 12:07 97.6 F 109 H 16 110/74 96 09/24/18 05:00 97.5 F L 103 H 18 130/76 98 09/23/18 23:50 108 H 18 09/23/18 21:00 97.1 F L 107 H 19 112/73 94 L Intake and Output 09/24/18 09/24/18 09/24/18 06:59 14:59 22:59 Intake Total 320 Output Total 1100 300 800 Balance -780 -300 -800 Intake: Intake, IV Titration 320 Amount Sodium Chloride 0.9% 1, 320 000 ml @ 100 mls/hr IV . Q10H [facility] Rx#:[id number] Output: Gastric Drainage 800 Urine 1100 300 Uretheral (Lopez) 1100 Stool 0 Other: Voiding Method Indwelling Catheter Indwelling Catheter Weight 77.111 kg Results CBC & Chem 7: 09/24/18 07:36 09/24/18 07:36 Labs: Abnormal Lab Results - Last 24 Hours (Table) 09/23/18 09/24/18 09/24/18 Range/Units 20:44 07:18 07:36 WBC (3.8-10.6) k/uL RBC (3.80-5.40) m/uL Hgb (11.4-16.0) gm/dL Hct (34.0-46.0) % Plt Count (150-450) k/uL Neutrophils # (Manual) (1.3-7.7) k/uL Lymphocytes # (Manual) (1.0-4.8) k/uL Chloride 117 H (98-107) mmol/L Carbon Dioxide 17 L (22-30) mmol/L BUN 47 H (7-17) mg/dL Glucose 151 H (74-99) mg/dL POC Glucose (mg/dL) 111 H 154 H (75-99) mg/dL Alkaline Phosphatase 180 H (38-126) U/L Total Protein 4.6 L (6.3-8.2) g/dL Albumin 1.9 L (3.5-5.0) g/dL 09/24/18 09/24/18 09/24/18 Range/Units 07:36 10:59 17:08 WBC 1.7 L (3.8-10.6) k/uL RBC 3.77 L (3.80-5.40) m/uL Hgb 10.2 L (11.4-16.0) gm/dL Hct 32.8 L (34.0-46.0) % Plt Count 17 L* D (150-450) k/uL Neutrophils # (Manual) 1.10 L (1.3-7.7) k/uL Lymphocytes # (Manual) 0.32 L (1.0-4.8) k/uL Chloride (98-107) mmol/L Carbon Dioxide (22-30) mmol/L BUN (7-17) mg/dL Glucose (74-99) mg/dL POC Glucose (mg/dL) 159 H 171 H (75-99) mg/dL Alkaline Phosphatase (38-126) U/L Total Protein (6.3-8.2) g/dL Albumin (3.5-5.0) g/dL Microbiology - Last 24 Hours (Table) 09/20/18 09:05 Blood Culture - Preliminary Blood No Growth after 96 hours Assessment and Plan Plan: Pt evaluated and examined. Case d/w ER physician. Pancytopenia, dehydration and weakness due to chemo. Mgmt recs as above, d/w FAMILY PARTNER
[2018-09-21 07:13] LABS: Glucose,Whole Blood 97 mg/dL (75-99)
[2018-09-21] MEDS: LIPASE 5,000/PROTEASE 17,000/AMYLASE 24,000 PO SCH ×3 (08:06→17:53)
[2018-09-21] MEDS ORDERED: Magnesium Replacement Protocol 1 EACH MISC MISCELLANE PRN ×2 (08:21→14:53)
[2018-09-21] MEDS: metFORMIN 500 MG TAB PO SCH (08:42)
[2018-09-21] MEDS: INSULIN ASPART (NovoLOG) 100 UNIT/ML VIAL SQ SCH ×4 (09:07→22:04)
[2018-09-21 10:16] LABS: ALT 28 U/L (9-52); AST 15 U/L (14-36); Albumin 1.9 g/dL (3.5-5.0); Alkaline Phosphatase 218 U/L (38-126); Blood Urea Nitrogen 18 mg/dL (7-17); Calcium 8.3 mg/dL (8.4-10.2); Chloride 111 mmol/L (98-107); Glucose 111 mg/dL (74-99); Magnesium 1.5 mg/dL (1.6-2.3); Potassium 3.5 mmol/L (3.5-5.1); Sodium 140 mmol/L (137-145); Total Bilirubin 1.3 mg/dL (0.2-1.3); Total Protein 4.6 g/dL (6.3-8.2)
[2018-09-21 10:22] LABS: HGB 9.4 gm/dL (11.4-16.0); Hypochromasia Slight; MCH 28.1 pg (25.0-35.0); MCHC 33.5 g/dL (31.0-37.0); Mean Platelet Volume 8.8; RBC 3.33 m/uL (3.80-5.40); RDW 14.2 % (11.5-15.5)
[2018-09-21 10:28] LABS: Platelet Count 15 k/uL (150-450); WBC 0.6 k/uL (3.8-10.6)
--- NOTE | 2018-09-21 10:59 | P.HPIM ---
History of Present Illness H&P Date: 09/21/18 This is a 73-year-old female admitted with increased generalized weakness, dehydration, lethargy, pancytopenia and multiple other medical issues in a patient with history of pancreatic cancer, diabetes mellitus, colorectal cancer status post chemo & radiation, bilateral knee replacements, anxiety and multiple other medical issues. states she recently completed her first of 2 chemotherapy treatments a week ago Tuesday. Upon completion of chemotherapy initially developed nausea vomiting diarrhea. Diarrhea and emesis subsided, remaining nausea ,weakness progressed. states patient collapsed related to her increasingly weak legs, gave out from underneath her. She never lost con sciousness. states patient did not have a fever, chest pain, palpitations or increasing shortness of breath,denied abdominal pain. No focal deficits, no lightheadedness or dizziness. Denies headache. The majority of history obtained from , chart as patient is currently lethargic/weak. EKG reporting normal sinus rhythm, septal infarct of undetermined age. WBC on admission 0.4, platelets 17, hemoglobin 10.2, INR 1.1. Sodium 135, potassium 3.8, BUN 25, creatinine 0.49. Magnesium 1.5, total bili 1.7, alk phos 275. albumin 2.4. UA cloudy, urine WBCs 4, urine bacteria occasional. IV fluid hydration initiated. Antibiotics on hold at this time as per oncology. Afebrile, mild tachycardia with heart rates in the low 100s, systolic blood pressures on admission in the 130s, currently low 100s. Maintaining O2 sats in the mid 90s on room air. Blood and urine cultures in progress. Review of Systems Review systems unable to fully complete at this time given patient's current clinical presentation. Extremely weak, lethargic, minimally converses. Those systems with pertinent positive or pertinent negative responses have been documented in the HPI. Past Medical History Past Medical History: Cancer, Diabetes Mellitus, Thyroid Disorder Additional Past Medical History / Comment(s): 07/2018 diagnosed with pancreatic cancer and is receiving chemotherapy with last time about one week ago, also newly diagnosed IDDM type II, past colorectal cancer with chemo and radiation/colostomy in 1997, hypothyroid History of Any Multi-Drug Resistant Organisms: None Reported Past Surgical History: Appendectomy, Bowel Resection, Joint Replacement, Tonsillectomy Additional Past Surgical History / Comment(s): Mediport then removal of mediport and new port inserted, stent between liver/pancreas at [facility], A/P resection rectum/colostomy, paracolostomy hernia repair, colonoscopies/polypectomies, D&C d/t miscarriage, L breast benign bx, bilateral total knee replacements, bilateral cataract removals/lens implants. Past Anesthesia/Blood Transfusion Reactions: No Reported Reaction, Motion Sickness Smoking Status: Never smoker - Past Family History Father Family Medical History: Cancer Additional Family Medical History / Comment(s): LUNG CA. GRANDMOTHER- CO LORECTAL CANCER. GRANDMOTHER- BREAST CANCER Mother Family Medical History: Neurologic Disorder Additional Family Medical History / Comment(s): "she from alzheimers" Brother(s) Family Medical History: Cancer Additional Family Medical History / Comment(s): CA: colorectal- Sister(s) Family Medical History: Cancer Additional Family Medical History / Comment(s): CA: cervical ca caused by Diethylstilbestrol (VANESSA) that mother received while with her Medications and Allergies Home Medications Medication Instructions Recorded Confirmed Type Lipase/Protease/Amylase [Whit Quigley 12,000 units PO AC-TID 08/14/18 09/20/18 History 12,000 Units Capsule] metFORMIN HCL [Glucophage] 500 mg PO DAILY 08/14/18 09/20/18 History Levothyroxine Sodium [Synthroid] 50 mcg PO DAILY 08/28/18 09/20/18 History Insulin Aspart [NovoLOG Flexpen] See Protocol SQ DIRECTED #3 pen 09/02/18 09/20/18 Rx Atorvastatin [Lipitor] 20 mg PO DAILY 09/20/18 09/20/18 History Insulin Glargine,Hum.rec.anlog 19 unit SQ QAM 09/20/18 09/20/18 History [Basaglar Kwikpen U-100] Allergies Allergy/AdvReac Type Severity Reaction Status Date / Time Penicillins AdvReac Unknown Nausea & Verified 09/20/18 10:03 Vomiting Physical Exam Vitals: Vital Signs Temp Pulse Pulse Resp BP BP Pulse Ox 09/21/18 05:21 98 F 107 H 16 105/58 96 09/20/18 21:16 98.3 F 105 H 16 112/73 95 09/20/18 14:42 98.3 F 99 16 138/81 96 09/20/18 14:10 98.8 F 101 H 24 128/70 99 09/20/18 14:00 101 H 22 128/70 98 09/20/18 13:50 101 H 26 H 128/70 98 09/20/18 13:40 102 H 21 128/70 98 09/20/18 13:30 99 23 128/70 97 09/20/18 13:20 98 23 128/70 98 09/20/18 13:10 102 H 21 128/70 98 09/20/18 13:00 96 23 128/70 98 09/20/18 12:50 97 23 128/70 98 09/20/18 12:40 98 20 128/70 98 09/20/18 12:30 99 22 128/70 98 09/20/18 12:20 98 23 128/70 98 09/20/18 12:10 100 23 128/70 99 09/20/18 12:00 99 23 128/70 98 09/20/18 11:59 101 H 22 99 Intake and Output 09/20/18 09/21/18 09/21/18 22:59 06:59 14:59 Intake Total 400 800 Balance 400 800 Intake: Intake, IV Titration 400 800 Amount Sodium Chloride 0.9% 1, 400 800 000 ml @ 100 mls/hr IV . Q10H [facility] Rx#:[id number] Other: Voiding Method Bedpan # Voids 2 PHYSICAL EXAM: VITAL SIGNS: [As above] GENERAL: Lying in bed, sleepy, arousable, weak, lethargic, no acute distress HEENT: Conjunctivae normal. eyes normal. Oral mucosa dry, NECK: No JVD. No thyroid enlargement. No LNs CARDIOVASCULAR: S1, S2 muffled. No murmur. Mild tachycardia RESPIRATION: Breath sounds diminished in the bases. No rhonchi or crackles. No bronchial breathing. ABDOMEN: Soft, distended, nontender . Anterior abdominal hernia , colostomy No guarding. no masses palpable. No guarding or rigidity .Bowel sounds heard. LEGS: mild edema, swelling. PSYCHIATRY: Alert and oriented -3, mood and affect normal. NERVOUS SYSTEM: Alert, Cranial N 2-12 grossly normal. Generalized, Diffuse weakness .No gross focal deficits. Skin: Warm, dry, intact with no ulcer no rash Lymphatic system. No LN neck axilla or groin. Results CBC & Chem 7: 09/20/18 09:05 09/20/18 09:05 Labs: Abnormal Lab Results - Last 24 Hours (Table) 09/20/18 Range/Units 09:05 Urine Appearance Cloudy H (Clear) Urine Protein 1+ H (Negative) Ur Squamous Epith Cells 8 H (0-4) /hpf Amorphous Sediment Few H (None) /hpf Urine Bacteria Occasional H (None) /hpf Urine Mucus Rare H (None) /hpf Microbiology - Last 24 Hours (Table) 09/20/18 09:05 Urine Culture - Preliminary Urine,Voided Thrombosis Risk Factor Assmnt - Choose All That Apply Any of the Below Risk Factors Present?: Yes Each Factor Represents 1 point: Medical pt on bed rest, Obesity (BMI >25) Other Risk Factors: Yes Each Risk Factor Represents 2 Points: Age 61-74 years, Malignancy Other congenital or acquired thrombophilia - If yes, enter type in comment: No Thrombosis Risk Factor Assessment Total Risk Factor Score: 6 Thrombosis Risk Factor Assessment Level: High Risk Assessment and Plan Assessment: Generalized weakness, dehydration secondary to chemotherapy. Recently completed first round of chemotherapy, one week ago. -Pancytopenia secondary to chemotherapy -Pancreatic cancer -Hypomagnesemia -Diabetes mellitus type II, newly diagnosed -Colorectal cancer status post chemo radiation, colostomy Plan: Continue current medication regime ,monitoring and symptomatic treatment. Maintain IV fluid hydration. As mentioned above antibiotics remain on hold as recommended per oncology. Close monitoring of WBC, neutrophils, hemoglobin, platelets. Magnesium replacement protocol ordered. Urine and blood cultures in progress, follow closely. Platelet transfusions as per oncology. At discharge patient will need wheelchair, bedside commode given patient's confinement to her room secondary to generalized weakness related to cancer and treatment-case management notified. Prognosis guarded given multiple complex medical issues. The impression and plan of care has been dictated as directed. : I performed a history and examination of this patient, discussed the same with the dictator. I agree with the dictator's note ,documented as a scribe. Any additional findings or plans will be noted. Time taken: 35 minutes
[2018-09-21 11:03] LABS: Anion Gap 12 mmol/L; Carbon Dioxide 17 mmol/L (22-30)
[2018-09-21 11:50] LABS: Glucose,Whole Blood 150 mg/dL (75-99)
[2018-09-21 11:52] LABS: Anisocytosis (M) Present; Poikilocytosis (M) Present
--- NOTE | 2018-09-21 12:40 | P.PN ---
Subjective Progress Note Date: 09/21/18 Principal diagnosis: Chemotherapy Remains afebrile although increased respiratory effort noted today, bilateral bases diminished left lower lobe crackles. Ostomy output is slowing. Tachycardia. Objective - Vital Signs Vital signs: Vital Signs Temp 98.3 F 09/21/18 12:22 Pulse 102 H 09/21/18 12:22 Resp 16 09/21/18 12:22 BP 143/73 09/21/18 12:22 Pulse Ox 99 09/21/18 12:22 Intake & Output 09/20/18 09/21/18 09/21/18 18:59 06:59 18:59 Intake Total 850 1200 Balance 850 1200 Weight 77.111 kg Intake: Intake, IV Titration 850 1200 Amount Sodium Chloride 0.9% 1, 100 1200 000 ml @ 100 mls/hr IV . Q10H [facility] Rx#:[id number] Sodium Chloride 0.9% 500 500 ml 500 ml @ 999 mls/hr IV .Q31M ONE Rx#:[id number] Vancomycin 1,500 mg In 250 Sodium Chloride 0.9% 250 ml @ 125 mls/hr IVPB ONCE STA Rx#:[id number] Other: Voiding Method Bedpan # Voids 2 - Exam Gen: Alert sleepy but arousable, Mild Acute Distress Mucous Membranes: Oral Thrush and Dry Neck: Supple No lymphadenopathy palpable Heart: Tachycardia, Reg Lungs: Noted increased respiratory effort, DIminished Bibasilar, LLL Crackes Abdomen: Soft, Tender, Ostomy output Extremities: No rashes, skin Dry Neuro: No sensory or motor deficits - Labs CBC & Chem 7: 09/21/18 08:47 09/21/18 08:47 Labs: Abnormal Lab Results - Last 24 Hours (Table) 09/21/18 09/21/18 09/21/18 Range/Units 08:47 08:47 11:49 WBC 0.6 L* (3.8-10.6) k/uL RBC 3.33 L (3.80-5.40) m/uL Hgb 9.4 L (11.4-16.0) gm/dL Hct 28.0 L (34.0-46.0) % Plt Count 15 L* (150-450) k/uL Chloride 111 H (98-107) mmol/L Carbon Dioxide 17 L (22-30) mmol/L BUN 18 H (7-17) mg/dL Creatinine 0.42 L (0.52-1.04) mg/dL Glucose 111 H (74-99) mg/dL POC Glucose (mg/dL) 150 H (75-99) mg/dL Calcium 8.3 L (8.4-10.2) mg/dL Magnesium 1.5 L (1.6-2.3) mg/dL Alkaline Phosphatase 218 H (38-126) U/L Total Protein 4.6 L (6.3-8.2) g/dL Albumin 1.9 L (3.5-5.0) g/dL Microbiology - Last 24 Hours (Table) 09/20/18 09:05 Blood Culture - Preliminary Blood No Growth after 24 hours 09/20/18 09:05 Urine Culture - Preliminary Urine,Voided Assessment and Plan (1) Dehydration Current Visit: Yes Status: Acute Code(s): E86.0 - DEHYDRATION SNOMED Code(s): 90395570 (2) Pancreatic cancer Current Visit: Yes Status: Acute Code(s): C25.9 - MALIGNANT NEOPLASM OF PANCREAS, UNSPECIFIED SNOMED Code(s): 134628713 (3) Pancytopenia due to chemotherapy Current Visit: Yes Status: Acute Code(s): D61.810 - ANTINEOPLASTIC CHEMOTHERAPY INDUCED PANCYTOPENIA SNOMED Code(s): 3317693 (4) History of colon cancer Current Visit: No Status: Acute Code(s): Z85.038 - PERSONAL HISTORY OF MALIGNANT NEOPLASM OF LARGE INTESTINE SNOMED Code(s): 113604002 Plan: Assessment and Recommendations: 1. Pancytopenia: Secondary to Chemotherapy +/- Infectious Etiology: Neutropenia - Monitor Daily CBC with Differential - No GCSF required at this time as she received post chemotherapy on 09/15/18, if still neutropenic on 09/20/18 may initiate short acting GCSF - Zarxio - Afebrile through hospital stay, Awaiting Stool studies prior to antibiotics - Vega-Cultures Pending, Chest Xray reviewed Anemia: - No transfusion required today - Transfuse for hemoglobin less than 7 Thrombocytopenia: - Monitor closely for signs or symptoms of bleeding - Transfuse SDP for platleet count less then 15 (if infectious etiology and neutropenic), less than 10 if no infectious etiology found, and less than 50K if bleeding - Platelets 17 today, no transfusion required - Hold anticoagulation at this time 2. Pancreatic Cancer - Status Post FOLFOX Cycle one on 09/15/18 -Chemotherapy currently on Hold until patient counts recover and infectious etiology is ruled out - Will need to follow up with Dr. Lynch as outpatient to determine dose reduction and treatment plan 3. Increased Ostomy Output-Diarrhea and Emesis Post Chemotherapy: - Obtain Stool Culture and C-Diff 4. Dehydration: - IV Fluid Hydration - Monitor electrolytes and replace as needed 5. Mental Status Changes, Increased Lethargy: improved - Secondary to dehydration 6. Weakness and Debility likely secondary to Dehydration and decreased PO intake: - PT/OT - Fall and Safety Precautions 7. Severe Protein Calorie Malnutrition - Dieticien and increase PO Protein Intake 8. Community Acquired Pneumonia: - Chest Xray Reviewed Acute Infiltrated, consistent with a possible pneumonia - Cefepime Ordered and Vanco 9. UTI - Gram Negative Bacilli (Resulted at 2130 on 09/21/18) - Consultation for Infectious Disease - Patient is allergic to Penicillin will begin Azactam in interim for coverage Update: Late Entry Plan Patient Seen and Evaluated this am - Noted POsitive UTI, PCN Allergy, Consult Placed for Infectious disease. Spoke to nursing, respirations and increased respiratory effort continues (Avg 24- 28rr/min) although denies shortness of breath. - RN to contact ID regarding antibiotic coverage will begin tonight - Remains afebrile - Discussed with ID will begin Azactam Physician Attestation: I have completed the full history and physical and developed the impression and plan, agree with above dictation. Dictated as a scribe Idalmis Langston NP
[2018-09-21 13:19] VITALS: BMI 32.1
[2018-09-21] MEDS: MAGNESIUM SULFATE-D5W PMX 1 GM in DEXTROSE/WATER 1 100ML.BAG IVPB SCH ×2 (16:44→17:57)
[2018-09-21 17:14] LABS: Glucose,Whole Blood 315 mg/dL (75-99)
[2018-09-21 20:45] LABS: Glucose,Whole Blood 270 mg/dL (75-99)
[2018-09-21 20:47] LABS: Iron Saturation 24.36 (12.00-45.00)
[2018-09-22] MEDS: SODIUM CHLORIDE 0.9% 1,000 ML IV SCH ×3 (00:50→20:28)
[2018-09-22] MEDS: AZTREONAM 1 GM in SODIUM CHLORIDE 0.9% 50 ML IVPB SCH ×2 (00:50→10:41)
[2018-09-22] MEDS: ONDANSETRON 4 MG/2 ML VIAL IVP PRN ×2 (06:13→20:24)
[2018-09-22] MEDS: MORPHINE SULFATE 4 MG/ML SYRINGE IV PRN ×2 (06:13→20:24)
[2018-09-22 07:05] LABS: Glucose,Whole Blood 277 mg/dL (75-99)
[2018-09-22] MEDS: LEVOTHYROXINE 50 MCG TAB PO SCH (07:33)
[2018-09-22] MEDS: INSULIN ASPART (NovoLOG) 100 UNIT/ML VIAL SQ SCH ×4 (08:29→20:19)
[2018-09-22] MEDS: LIPASE 5,000/PROTEASE 17,000/AMYLASE 24,000 PO SCH ×3 (08:30→17:32)
[2018-09-22] MEDS: metFORMIN 500 MG TAB PO SCH (08:30)
[2018-09-22] MEDS ORDERED: INSULIN ASPART (NovoLOG) 100 UNIT/ML VIAL SQ ONE (08:55)
[2018-09-22 09:27] LABS: HCT 31.2 % (34.0-46.0); HGB 9.8 gm/dL (11.4-16.0); Hypochromasia Moderate; MCH 27.2 pg (25.0-35.0); MCHC 31.4 g/dL (31.0-37.0); MCV 86.7 fL (80.0-100.0); Mean Platelet Volume 10.2; RDW 14.1 % (11.5-15.5)
[2018-09-22 09:29] LABS: Platelet Count 14 k/uL (150-450); WBC 0.5 k/uL (3.8-10.6)
[2018-09-22 09:43] LABS: ALT 26 U/L (9-52); AST 9 U/L (14-36); Albumin 2.2 g/dL (3.5-5.0); Alkaline Phosphatase 234 U/L (38-126); Anion Gap 9 mmol/L; Blood Urea Nitrogen 23 mg/dL (7-17); Calcium 8.8 mg/dL (8.4-10.2); Carbon Dioxide 19 mmol/L (22-30); Chloride 111 mmol/L (98-107); Glucose 250 mg/dL (74-99); Potassium 3.4 mmol/L (3.5-5.1); Sodium 139 mmol/L (137-145); Total Bilirubin 1.4 mg/dL (0.2-1.3); Total Protein 5.1 g/dL (6.3-8.2)
[2018-09-22 10:10] LABS: Poikilocytosis (M) Present
[2018-09-22] MEDS: INSULIN DETEMIR (LEVEMIR) 100 UNIT/ML SYR SQ SCH (10:11)
[2018-09-22] MEDS ORDERED: Magnesium Replacement Protocol 1 EACH MISC MISCELLANE PRN (10:39)
[2018-09-22] MEDS ORDERED: Potassium Replacement Protocol 1 EACH MISC MISCELLANE PRN (10:39)
[2018-09-22] MEDS: FILGRASTIM-SNDZ 480 MCG/0.8 ML SYRINGE SQ SCH (10:40)
[2018-09-22 11:03] LABS: Glucose,Whole Blood 257 mg/dL (75-99)
--- NOTE | 2018-09-22 14:32 | XR ---
EXAMINATION TYPE: XR chest 1V portable DATE OF EXAM: 09/22/2018 HISTORY: Shortness of breath. COMPARISON: 09/20/2018 TECHNIQUE: Single view of the chest is submitted. FINDINGS: Right-sided Mediport catheter demonstrates its distal tip overlying the SVC. No evidence for pneumoth orax. Patchy density right infrahilar region as well as left lower lobe and left upper lobe may reflect mul tifocal pneumonia. Correlate clinically. The heart is stable. Hilar and mediastinal structures are within normal limits. Degenerative changes are seen of the dorsal spine. IMPRESSION: 1. Patchy density right infrahilar region as well as left lower lobe and left upper lobe may reflect multifocal pneumonia. Correlate clinically.
--- NOTE | 2018-09-22 15:09 | P.PN ---
Subjective Progress Note Date: 09/22/18 Principal diagnosis: Chemotherapy Remains afebrile Respiratory status improved since antibiotics. Platelets 14 Objective - Vital Signs Vital signs: Vital Signs Temp 97.5 F L 09/22/18 11:21 Pulse 92 09/22/18 11:21 Resp 16 09/22/18 11:21 BP 119/67 09/22/18 11:21 Pulse Ox 95 09/22/18 11:21 Intake & Output 09/21/18 09/22/18 09/22/18 18:59 06:59 18:59 Intake Total 2420 920 Output Total 900 200 Balance 1520 920 -200 Weight 77.111 kg Intake: Intake, IV Titration 1200 800 Amount Magnesium Sulfate-D5w Pmx 1200 1 gm In Dextrose/Water 1 100ml.bag @ 100 mls/hr IVPB Q1H JARED Rx#: [id number] Sodium Chloride 0.9% 1, 800 000 ml @ 100 mls/hr IV . Q10H JARED Rx#:[id number] Oral 1220 120 Output: Stool 900 200 Other: Voiding Method Bedpan Diaper Diaper # Voids 3 1 - Exam Gen: Alert sleepy but arousable, Mild Acute Distress Mucous Membranes: Oral Thrush and Dry Neck: Supple No lymphadenopathy palpable Heart: Tachycardia, Reg Lungs: Noted increased respiratory effort, DIminished Bibasilar, LLL Crackes Abdomen: Soft, Tender, Ostomy output Extremities: No rashes, skin Dry Neuro: No sensory or motor deficits - Labs CBC & Chem 7: 09/22/18 08:20 09/22/18 08:20 Labs: Abnormal Lab Results - Last 24 Hours (Table) 09/20/18 09/21/18 09/21/18 Range/Units 09:05 17:13 20:44 WBC (3.8-10.6) k/uL RBC (3.80-5.40) m/uL Hgb (11.4-16.0) gm/dL Hct (34.0-46.0) % Plt Count (150-450) k/uL Potassium (3.5-5.1) mmol/L Chloride (98-107) mmol/L Carbon Dioxide (22-30) mmol/L BUN (7-17) mg/dL Glucose (74-99) mg/dL POC Glucose (mg/dL) 315 H 270 H (75-99) mg/dL Ferritin 2386.7 H (10.0-291.0) ng/mL Total Bilirubin (0.2-1.3) mg/dL AST (14-36) U/L Alkaline Phosphatase (38-126) U/L Total Protein (6.3-8.2) g/dL Albumin (3.5-5.0) g/dL Vitamin B12 1459.0 H (200.0-944.0) pg/mL 09/22/18 09/22/18 09/22/18 Range/Units 07:04 08:20 08:20 WBC 0.5 L* (3.8-10.6) k/uL RBC 3.60 L (3.80-5.40) m/uL Hgb 9.8 L (11.4-16.0) gm/dL Hct 31.2 L (34.0-46.0) % Plt Count 14 L* (150-450) k/uL Potassium 3.4 L (3.5-5.1) mmol/L Chloride 111 H (98-107) mmol/L Carbon Dioxide 19 L (22-30) mmol/L BUN 23 H (7-17) mg/dL Glucose 250 H (74-99) mg/dL POC Glucose (mg/dL) 277 H (75-99) mg/dL Ferritin (10.0-291.0) ng/mL Total Bilirubin 1.4 H (0.2-1.3) mg/dL AST 9 L (14-36) U/L Alkaline Phosphatase 234 H (38-126) U/L Total Protein 5.1 L (6.3-8.2) g/dL Albumin 2.2 L (3.5-5.0) g/dL Vitamin B12 (200.0-944.0) pg/mL 09/22/18 Range/Units 11:02 WBC (3.8-10.6) k/uL RBC (3.80-5.40) m/uL Hgb (11.4-16.0) gm/dL Hct (34.0-46.0) % Plt Count (150-450) k/uL Potassium (3.5-5.1) mmol/L Chloride (98-107) mmol/L Carbon Dioxide (22-30) mmol/L BUN (7-17) mg/dL Glucose (74-99) mg/dL POC Glucose (mg/dL) 257 H (75-99) mg/dL Ferritin (10.0-291.0) ng/mL Total Bilirubin (0.2-1.3) mg/dL AST (14-36) U/L Alkaline Phosphatase (38-126) U/L Total Protein (6.3-8.2) g/dL Albumin (3.5-5.0) g/dL Vitamin B12 (200.0-944.0) pg/mL Microbiology - Last 24 Hours (Table) 09/20/18 09:05 Blood Culture - Preliminary Blood No Growth after 48 hours 09/20/18 09:05 Urine Culture - Preliminary Urine,Voided Gram Neg Bacilli Assessment and Plan (1) Dehydration Current Visit: Yes Status: Acute Code(s): E86.0 - DEHYDRATION SNOMED Code(s): 77604068 (2) Pancreatic cancer Current Visit: Yes Status: Acute Code(s): C25.9 - MALIGNANT NEOPLASM OF PANCREAS, UNSPECIFIED SNOMED Code(s): 004709233 (3) Pancytopenia due to chemotherapy Current Visit: Yes Status: Acute Code(s): D61.810 - ANTINEOPLASTIC CHEMOTHERAPY INDUCED PANCYTOPENIA SNOMED Code(s): 6817472 (4) History of colon cancer Current Visit: No Status: Acute Code(s): Z85.038 - PERSONAL HISTORY OF MALIGNANT NEOPLASM OF LARGE INTESTINE SNOMED Code(s): 412557140 Plan: Assessment and Recommendations: 1. Pancytopenia: Secondary to Chemotherapy +/- Infectious Etiology: Neutropenia - Monitor Daily CBC with Differential - No GCSF required at this time as she received post chemotherapy on 09/15/18, if still neutropenic on 09/20/18 may initiate short acting GCSF - Zarxio - Afebrile through hospital stay, Awaiting Stool studies prior to antibiotics - Vega-Cultures Pending, Chest Xray reviewed Anemia: - No transfusion required today - Transfuse for hemoglobin less than 7 Thrombocytopenia: - Monitor closely for signs or symptoms of bleeding - Transfuse SDP for platleet count less then 15 (if infectious etiology and neutropenic), less than 10 if no infectious etiology found, and less than 50K if bleeding - Platelets 14 today,Neutropenia status post chemotherapy with active pneumonia and gram negative bacilli in urine therefore will transfuse one unit PLatlets. - Hold anticoagulation at this time 2. Pancreatic Cancer - Status Post FOLFOX Cycle one on 09/15/18 -Chemotherapy currently on Hold until patient counts recover and infectious etiology is ruled out - Will need to follow up with Dr. Lynch as outpatient to determine dose reduction and treatment plan 3. Increased Ostomy Output-Diarrhea and Emesis Post Chemotherapy: Improved - Obtain Stool Culture and C-Diff 4. Dehydration: Improved - IV Fluid Hydration - Monitor electrolytes and replace as needed - Hypokalemia per protocol supp, mag 2 5. Mental Status Changes, Increased Lethargy: improved - Secondary to dehydration 6. Weakness and Debility likely secondary to Dehydration and decreased PO intake: - PT/OT - Fall and Safety Precautions 7. Severe Protein Calorie Malnutrition - Dieticien and increase PO Protein Intake 8. Community Acquired Pneumonia: - Repeat Xray today 09/22/18 - Re-demonstrates LLL Pneumonia - Chest Xray Reviewed Acute Infiltrated, consistent with a possible pneumonia - Cefepime re-ordered per ID and tolerating well, Azactam originally ordered with PCN allergy although no cross reactions noted. 9. UTI - Gram Negative Bacilli (Resulted at 2130 on 09/21/18) - Consultation for Infectious Disease - Continue Antibiotics with Cefepime per ID Update: Late Entry Plan Patient Seen and Evaluated this am - Continue to hold chemotherapy at this time, patient received GCSF in office on 09/15/18 therefore no zarxio required - Platelet count less than 15 in febrile neutropenia - transfuse one unit SDP today (Active identified pneumonia and UTI - Gram neg Bacilli) - Respiratory Status clinically improving. Reviewed repeat Chest Xray - Continue supportive care per primary team and followup after discharge prior to resuming chemotherapy, will plan to see Dr. Lynch at follow-up to determine dose reduction or change in treatment plan. Idalmis Langston [employer] Physician Attest: I have completed the full history and physical and developed the completed impression and plan, agree with above dictation, dictated as a scribe
--- NOTE | 2018-09-22 15:40 | P.PN ---
Subjective Progress Note Date: 09/22/18 This is a 73-year-old female admitted with increased generalized weakness, dehydration, lethargy, pancytopenia and multiple other medical issues in a patient with history of pancreatic cancer, diabetes mellitus, colorectal cancer status post chemo & radiation, bilateral knee replacements, anxiety and multiple other medical issues. states she recently completed her first of 2 chemotherapy treatments a week ago Tuesday. Upon completion of chemotherapy initially developed nausea vomiting diarrhea. Diarrhea and emesis subsided, remaining nausea ,weakness progressed. states patient collapsed related to her increasingly weak legs, gave out from underneath her. She never lost consciousness. states patient did not have a fever, chest pain, palpitations or increasing shortness of breath,denied abdominal pain. No focal deficits, no lightheadedness or dizziness. Denies headache. The majority of history obtained from , chart as patient is currently lethargic/weak. E KG reporting normal sinus rhythm, septal infarct of undetermined age. WBC on admission 0.4, platelets 17, hemoglobin 10.2, INR 1.1. Sodium 135, potassium 3.8, BUN 25, creatinine 0.49. Magnesium 1.5, total bili 1.7, alk phos 275. albumin 2.4. UA cloudy, urine WBCs 4, urine bacteria occasional. IV fluid hydration initiated. Antibiotics on hold at this time as per oncology. Afebrile, mild tachycardia with heart rates in the low 100s, systolic blood pressures on admission in the 130s, currently low 100s. Maintaining O2 sats in the mid 90s on room air. Blood and urine cultures in progress. 09/22/2018 urine culture growing gram-negative bacilli. Antibiotics-Aztreonam initiated last night as per oncology. Afebrile, WBC 0.5. VSS, Tachycardia resolved, heart rate currently in the 90s. Maintaining O2 sats in the mid to high 90s on room air. Platelets trending down 14. Consuming 25% of breakfast with no nausea vomiting. Potassium 3.4, magnesium 1.4. Alk phos mildly increased from yesterday ,234. Objective - Vital Signs Vital signs: Vital Signs Temp 97.5 F L 09/22/18 11:21 Pulse 92 09/22/18 11:21 Resp 16 09/22/18 11:21 BP 119/67 09/22/18 11:21 Pulse Ox 95 09/22/18 11:21 Intake & Output 09/21/18 09/22/18 09/22/18 18:59 06:59 18:59 Intake Total 2420 920 Output Total 900 Balance 1520 920 Weight 77.111 kg Intake: Intake, IV Titration 1200 800 Amount Magnesium Sulfate-D5w Pmx 1200 1 gm In Dextrose/Water 1 100ml.bag @ 100 mls/hr IVPB Q1H JARED Rx#: [id number] Sodium Chloride 0.9% 1, 800 000 ml @ 100 mls/hr IV . Q10H JARED Rx#:[id number] Oral 1220 120 Output: Stool 900 Other: Voiding Method Bedpan Diaper # Voids 3 1 - Exam VITAL SIGNS: [As above] GENERAL: Lying in bed, sleepy, arousable, weak, no acute distress HEENT: Conjunctivae normal. eyes normal. Oral thrush, mucosa dry NECK: No JVD. No thyroid enlargement. No LNs CARDIOVASCULAR: S1, S2 muffled. No murmur. RESPIRATION: Breath sounds diminished in the bases. No rhonchi, fine left lower lobe crackles. ABDOMEN: Soft, distended, nontender . functioning colostomy, No guarding. no masses palpable. No guarding or rigidity .Bowel sounds heard. LEGS: mild edema, swelling. PSYCHIATRY: Alert and oriented -3, mood and affect normal. NERVOUS SYSTEM: Alert, Cranial N 2-12 grossly normal. Generalized, Diffuse weakness .No gross focal deficits. Skin: Warm, dry, intact with no ulcer no rash, mid buttock/sacrum linear deep tissue bruise - Labs CBC & Chem 7: 09/22/18 08:20 09/22/18 08:20 Labs: Abnormal Lab Results - Last 24 Hours (Table) 09/20/18 09/21/18 09/21/18 Range/Units 09:05 17:13 20:44 WBC (3.8-10.6) k/uL RBC (3.80-5.40) m/uL Hgb (11.4-16.0) gm/dL Hct (34.0-46.0) % Plt Count (150-450) k/uL Potassium (3.5-5.1) mmol/L Chloride (98-107) mmol/L Carbon Dioxide (22-30) mmol/L BUN (7-17) mg/dL Glucose (74-99) mg/dL POC Glucose (mg/dL) 315 H 270 H (75-99) mg/dL Ferritin 2386.7 H (10.0-291.0) ng/mL Total Bilirubin (0.2-1.3) mg/dL AST (14-36) U/L Alkaline Phosphatase (38-126) U/L Total Protein (6.3-8.2) g/dL Albumin (3.5-5.0) g/dL Vitamin B12 1459.0 H (200.0-944.0) pg/mL 09/22/18 09/22/18 09/22/18 Range/Units 07:04 08:20 08:20 WBC 0.5 L* (3.8-10.6) k/uL RBC 3.60 L (3.80-5.40) m/uL Hgb 9.8 L (11.4-16.0) gm/dL Hct 31.2 L (34.0-46.0) % Plt Count 14 L* (150-450) k/uL Potassium 3.4 L (3.5-5.1) mmol/L Chloride 111 H (98-107) mmol/L Carbon Dioxide 19 L (22-30) mmol/L BUN 23 H (7-17) mg/dL Glucose 250 H (74-99) mg/dL POC Glucose (mg/dL) 277 H (75-99) mg/dL Ferritin (10.0-291.0) ng/mL Total Bilirubin 1.4 H (0.2-1.3) mg/dL AST 9 L (14-36) U/L Alkaline Phosphatase 234 H (38-126) U/L Total Protein 5.1 L (6.3-8.2) g/dL Albumin 2.2 L (3.5-5.0) g/dL Vitamin B12 (200.0-944.0) pg/mL 09/22/18 Range/Units 11:02 WBC (3.8-10.6) k/uL RBC (3.80-5.40) m/uL Hgb (11.4-16.0) gm/dL Hct (34.0-46.0) % Plt Count (150-450) k/uL Potassium (3.5-5.1) mmol/L Chloride (98-107) mmol/L Carbon Dioxide (22-30) mmol/L BUN (7-17) mg/dL Glucose (74-99) mg/dL POC Glucose (mg/dL) 257 H (75-99) mg/dL Ferritin (10.0-291.0) ng/mL Total Bilirubin (0.2-1.3) mg/dL AST (14-36) U/L Alkaline Phosphatase (38-126) U/L Total Protein (6.3-8.2) g/dL Albumin (3.5-5.0) g/dL Vitamin B12 (200.0-944.0) pg/mL Microbiology - Last 24 Hours (Table) 09/20/18 09:05 Blood Culture - Preliminary Blood No Growth after 48 hours 09/20/18 09:05 Urine Culture - Preliminary Urine,Voided Gram Neg Bacilli Assessment and Plan Assessment: -Generalized weakness, dehydration secondary to chemotherapy. Recently completed first round of chemotherapy, one week ago. -Pancytopenia secondary to chemotherapy -Acute UTI with gram-negative bacilli -Pancreatic cancer -Hypomagnesemia -Diabetes mellitus type II, newly diagnosed -Colorectal cancer status post chemo radiation, colostomy -Hyperkalemia -Protein calorie malnutrition Plan: Continue current medication regime ,monitoring and symptomatic treatment. Potassium and magnesium replacement protocol as ordered .encourage oral intake including ensure supplements between meals. Continue IV fluid hydration. Blood sugars elevated, home dose. Lantus added to med regime. Dietitian consulted related to poor diet intake, protein malnutrition.antibiotics initiated as mentioned above with ID consult in place,recommendations pending. Close monitoring of WBC, neutrophils, hemoglobin, platelets. Final cultures pending, follow closely. Platelet transfusions as per oncology. Palliative care, wheelchair, bedside commode, hospital bed arranged as per case management. Prognosis guarded given multiple complex medical issues. The impression and plan of care has been dictated as directed. : I performed a history and examination of this patient, discussed the same with the dictator. I agree with the dictator's note ,documented as a scribe. Any additional findings or plans will be noted. Time taken: 35 minutes
[2018-09-22] MEDS: CEFEPIME 2 GM in SODIUM CHLORIDE 0.9% 100 ML IVPB SCH (16:38)
[2018-09-22] MEDS: CLOTRIMAZOLE TROCHE 10 MG TROCHE MUCOUS MEM SCH ×2 (16:50→19:50)
[2018-09-22 17:15] LABS: Glucose,Whole Blood 164 mg/dL (75-99)
[2018-09-22 20:26] LABS: Glucose,Whole Blood 126 mg/dL (75-99)
--- NOTE | 2018-09-22 22:38 | CONS ---
CONSULTATION DATE OF SERVICE: 09/22/2018. REASON FOR CONSULTATION: Neutropenia with gram-negative urinary tract infection. HISTORY OF PRESENT ILLNESS: The patient is a 73-year-old female with past medical history significant for pancreatic cancer, history of colon cancer, status post chemoradiation therapy, the patient presenting to the ER at [facility] on 09/20/2018 with chief complaints of generalized weakness. Apparently the patient's symptoms have been going on for a few days before the patient has been brought to the hospital. There is no clear history of any nausea, no vomiting or any diarrhea. The patient has been complaining of feeling chilled, but no high-grade fever. With these symptoms, the patient was evaluated by the ER physician. On arrival to the ER, the patient has been afebrile. The patient was noticed to be neutropenic as well as thrombocytopenic. The patient creatinine was normal. The patient UA was positive with cloudy appearance. Stool for C dif was negative. Influenza serology was negative. The patient did have a chest x-ray which shows mild cardiomegaly with decreased inspiration on the current study, small left pleural effusion. Urine culture now showing a gram-negative bacilli. She was started on Azactam because of her PENICILLIN allergy. Infectious Disease was consulted for further recommendation regarding antibiotic therapy. Most of the information has been obtained from talking to nursing staff and review of chart as the patient herself was not a good historian and remains to be lethargic and not answering questions. REVIEW OF SYSTEMS: Could not be reliably obtained because of underlying current condition though the positive points have been mentioned in HPI. PAST MEDICAL HISTORY: Pancreatic cancer for which the patient currently receiving chemo, diabetes mellitus, colorectal cancer, hypothyroidism. PAST SURGICAL HISTORY: Appendectomy, bowel resection, tonsillectomy, MediPort placement and bilateral knee replacement. SOCIAL HISTORY: No history of smoking, drinking or drug use. FAMILY HISTORY: Father history of lung cancer. Grandmother with colorectal cancer. Mother with history of Alzheimer disease. ALLERGIES: PENICILLIN mostly with nausea, vomiting, more likely side effects rather than true allergy. MEDICATION: Include the patient is currently on Tylenol, ZenPep, Mycelex troches, Zaroxolyn, NovoLog, Levemir, Synthroid, Glucophage, Narcan, Zofran, Aztreonam 1 gm q8. PHYSICAL EXAMINATION: Her blood pressure is 119/67 with a pulse of 92, temperature 97.5. She is 95% on room air. General description is an elderly female, lying in bed in no distress. No tachypnea or accessory muscles of respiration use. HEENT: Shows slight pallor. No scleral icterus. Oral mucosal membranes are dry. Neck: Trachea central. No thyromegaly. Lungs unlabored breathing. Decreased breath sounds in the bases. No wheeze. Heart S1, S2. Regular rate and rhythm. ABDOMEN: Soft, no tenderness. EXTREMITIES: No edema of the feet. Skin examination: No rash or mass palpable. Neurological: Patient responds to her name. Remains to be lethargic. Though orientation could not be determined. LABS: Hemoglobin 9.8, white count of 0.5, BUN of 23, creatinine 0.59, potassium is 3.4. UA was mildly positive. Influenza serology negative. Urine with gram-negative bacilli. Blood culture has been negative. DIAGNOSTIC IMPRESSION AND PLAN: 1. Patient admitted to the hospital with generalized weakness in this patient who do have a history of pancreatic cancer, currently undergoing chemo in this patient who did have evidence of profound neutropenia and patient receiving chemo has been admitted to the hospital, will need to cover for the resistant gram-negative pathogen Pseudomonas. 2. The patient with PENICILLIN allergy, which is reported more of nausea vomiting, more of a side effect rather than true allergy. PLAN: 1. Discontinue aztreonam. 2. Start the patient's cefepime 2 g q.8 hours. 3. Gentle IV fluid. 4. We will follow up on clinical condition and culture to further adjust medication if needed. Thank you for this consultation. Will follow this patient along with you. MMODL / IJN: [id number] /
[2018-09-23] MEDS: CLOTRIMAZOLE TROCHE 10 MG TROCHE MUCOUS MEM SCH ×5 (01:46→19:51)
[2018-09-23] MEDS: CEFEPIME 2 GM in SODIUM CHLORIDE 0.9% 100 ML IVPB SCH ×2 (01:48→07:30)
[2018-09-23] MEDS: SODIUM CHLORIDE 0.9% 1,000 ML IV SCH ×2 (05:44→19:52)
[2018-09-23] MEDS: LEVOTHYROXINE 50 MCG TAB PO SCH (05:46)
[2018-09-23 07:11] LABS: Glucose,Whole Blood 79 mg/dL (75-99)
[2018-09-23] MEDS: metFORMIN 500 MG TAB PO SCH (07:14)
[2018-09-23] MEDS: LIPASE 5,000/PROTEASE 17,000/AMYLASE 24,000 PO SCH ×3 (07:14→17:26)
[2018-09-23] MEDS: MORPHINE SULFATE 4 MG/ML SYRINGE IV PRN (07:19)
[2018-09-23 07:23] LABS: HCT 31.9 % (34.0-46.0); HGB 9.6 gm/dL (11.4-16.0); Hypochromasia Slight; MCH 26.2 pg (25.0-35.0); MCHC 30.2 g/dL (31.0-37.0); MCV 86.8 fL (80.0-100.0); Mean Platelet Volume 14.8; RBC 3.67 m/uL (3.80-5.40); RDW 14.6 % (11.5-15.5)
[2018-09-23] MEDS: ONDANSETRON 4 MG/2 ML VIAL IVP PRN (07:23)
[2018-09-23 07:29] LABS: ALT 27 U/L (9-52); AST 10 U/L (14-36); Albumin 1.9 g/dL (3.5-5.0); Alkaline Phosphatase 189 U/L (38-126); Anion Gap 6 mmol/L; Blood Urea Nitrogen 31 mg/dL (7-17); Calcium 9.2 mg/dL (8.4-10.2); Carbon Dioxide 20 mmol/L (22-30); Chloride 115 mmol/L (98-107); Glucose 80 mg/dL (74-99); Magnesium 1.9 mg/dL (1.6-2.3); Potassium 3.5 mmol/L (3.5-5.1); Sodium 141 mmol/L (137-145); Total Bilirubin 1.4 mg/dL (0.2-1.3); Total Protein 4.6 g/dL (6.3-8.2)
[2018-09-23] MEDS: INSULIN ASPART (NovoLOG) 100 UNIT/ML VIAL SQ SCH ×4 (07:31→20:45)
[2018-09-23] MEDS: INSULIN DETEMIR (LEVEMIR) 100 UNIT/ML SYR SQ SCH (07:31)
[2018-09-23 07:44] LABS: WBC 0.9 k/uL (3.8-10.6)
[2018-09-23 07:45] LABS: Platelet Count 6 k/uL (150-450)
--- NOTE | 2018-09-23 10:39 | P.PN ---
Subjective This is a 73-year-old female admitted with increased generalized weakness, dehydration, lethargy, pancytopenia and multiple other medical issues in a patient with history of pancreatic cancer, diabetes mellitus, colorectal cancer status post chemo & radiation, bilateral knee replacements, anxiety and multiple other medical issues. states she recently completed her first of 2 chemotherapy treatments a week ago Tuesday. Upon completion of chemotherapy initially developed nausea vomiting diarrhea. Diarrhea and emesis subsided, remaining nausea ,weakness progressed. states patient collapsed related to her increasingly weak legs, gave out from underneath her. She never lost consciousness. states patient did not have a fever, chest pain, palpitations or increasing shortness of breath,denied abdominal pain. No focal deficits, no lightheadedness or dizziness. Denies headache. The majority of history obtained from , chart as patient is currently lethargic/weak. EKG reporting normal sinus rhythm, septal infarct of undetermined age. WBC on admission 0.4, platelets 17, hemoglobin 10.2, INR 1.1. Sodium 135, potassium 3.8, BUN 25, creatinine 0.49. Magnesium 1.5, total bili 1.7, alk phos 275. albumin 2.4. UA cloudy, urine WBCs 4, urine bacteria occasional. IV fluid hydration initiated. Antibiotics on hold at this time as per oncology. Afebrile, mild tachycardia with heart rates in the low 100s, systolic blood pressures on admission in the 130s, currently low 100s. Maintaining O2 sats in the mid 90s on room air. Blood and urine cultures in progress. 09/22/2018 urine culture growing gram-negative bacilli. Antibiotics-Aztreonam initiated last night as per oncology. Afebrile, WBC 0.5. VSS, Tachycardia resolved, heart rate currently in the 90s. Maintaining O2 sats in the mid to high 90s on room air. Platelets trending down 14. Consuming 25% of breakfast with no nausea vomiting. Potassium 3.4, magnesium 1.4. Alk phos mildly increased from yesterday ,234. 09/23/2018: Patient remains very weak and fatigued. Urine culture showed Escherichia coli with multiple susceptibilities, chest x-ray showed patchy density in the right infrahilar region as well as left lower lobe felt to be possible pneumonia. Infectious diseases been consult and she was started on aztreonam originally by hematology oncology, is been changed to cefepime. She remains on her long-acting insulins, metformin, Synthroid, and when necessary morphine for pain. I discussed her case with her . via the phone and we discussed at outpatient rehabilitation. Objective - Vital Signs Vital signs: Vital Signs Temp 96.9 F L 09/23/18 05:00 Pulse 94 09/23/18 05:00 Resp 17 09/23/18 05:00 BP 105/57 09/23/18 05:00 Pulse Ox 95 09/23/18 09:23 Intake & Output 09/22/18 09/23/18 09/23/18 18:59 06:59 18:59 Intake Total 120 1700 Output Total 987 3050 150 Balance -867 -1350 -150 Intake: Intake, IV Titration 1700 Amount Cefepime 2 gm In Sodium 100 Chloride 0.9% 100 ml @ 200 mls/hr IVPB Q8HR JARED Rx#:[id number] Sodium Chloride 0.9% 1, 1600 000 ml @ 100 mls/hr IV . Q10H JARED Rx#:[id number] Oral 120 Output: Urine 3050 150 Uretheral (Lopez) 3050 150 Post Void Residual 587 Stool 400 Other: Voiding Method Diaper Indwelling Catheter # Voids 2 - Exam ENERAL: Lying in bed, sleepy, somewhat arousable, weak, no acute distress HEENT: Conjunctivae normal. eyes normal. Oral thrush, mucosa dry NECK: No JVD. No thyroid enlargement. No LNs CARDIOVASCULAR: S1, S2 muffled. No murmur. RESPIRATION: Breath sounds diminished in the bases. No rhonchi, fine left lower lobe crackles. ABDOMEN: Soft, distended, nontender . functioning colostomy, No guarding. no masses palpable. No guarding or rigidity .Bowel sounds heard. LEGS: mild edema, swelling. PSYCHIATRY: Alert and oriented -3, mood and affect normal. NERVOUS SYSTEM: Sleeping, Cranial N 2-12 grossly normal. Generalized, Diffuse weakness .No gross focal deficits. Skin: Warm, dry, intact with no ulcer no rash, mid buttock/sacrum linear deep tissue bruise - Labs CBC & Chem 7: 09/23/18 06:42 09/23/18 06:42 Labs: Abnormal Lab Results - Last 24 Hours (Table) 09/22/18 09/22/1809/22/19 Range/Units 11:02 17:14 20:17 WBC (3.8-10.6) k/uL RBC (3.80-5.40) m/uL Hgb (11.4-16.0) gm/dL Hct (34.0-46.0) % MCHC (31.0-37.0) g/dL Plt Count (150-450) k/uL Chloride (98-107) mmol/L Carbon Dioxide (22-30) mmol/L BUN (7-17) mg/dL POC Glucose (mg/dL) 257 H 164 H 126 H (75-99) mg/dL Total Bilirubin (0.2-1.3) mg/dL AST (14-36) U/L Alkaline Phosphatase (38-126) U/L Total Protein (6.3-8.2) g/dL Albumin (3.5-5.0) g/dL 09/23/18 09/23/18 Range/Units 06:42 06:42 WBC 0.9 L* (3.8-10.6) k/uL RBC 3.67 L (3.80-5.40) m/uL Hgb 9.6 L (11.4-16.0) gm/dL Hct 31.9 L (34.0-46.0) % MCHC 30.2 L (31.0-37.0) g/dL Plt Count 6 L* D (150-450) k/uL Chloride 115 H (98-107) mmol/L Carbon Dioxide 20 L (22-30) mmol/L BUN 31 H (7-17) mg/dL POC Glucose (mg/dL) (75-99) mg/dL Total Bilirubin 1.4 H (0.2-1.3) mg/dL AST 10 L (14-36) U/L Alkaline Phosphatase 189 H (38-126) U/L Total Protein 4.6 L (6.3-8.2) g/dL Albumin 1.9 L (3.5-5.0) g/dL Microbiology - Last 24 Hours (Table) 09/20/18 09:05 Urine Culture - Final Urine,Voided Escherichia coli 09/20/18 09:05 Blood Culture - Preliminary Blood No Growth after 48 hours Assessment and Plan (1) UTI (urinary tract infection) Current Visit: Yes Status: Acute Code(s): N39.0 - URINARY TRACT INFECTION, SITE NOT SPECIFIED SNOMED Code(s): 12759111 (2) Pneumonia Current Visit: Yes Status: Acute Code(s): J18.9 - PNEUMONIA, UNSPECIFIED ORGANISM SNOMED Code(s): 927737959 (3) Dehydration Current Visit: Yes Status: Acute Code(s): E86.0 - DEHYDRATION SNOMED Code(s): 66549037 (4) Pancreatic cancer Current Visit: Yes Status: Acute Code(s): C25.9 - MALIGNANT NEOPLASM OF PANCREAS, UNSPECIFIED SNOMED Code(s): 985963797 (5) Pancytopenia due to chemotherapy Current Visit: Yes Status: Acute Code(s): D61.810 - ANTINEOPLASTIC CHEMOTHERAPY INDUCED PANCYTOPENIA SNOMED Code(s): 1781433 (6) Diabetes mellitus due to underlying condition with hyperglycemia Current Visit: No Status: Acute Code(s): E08.65 - DIABETES DUE TO UNDERLYING CONDITION W HYPERGLYCEMIA SNOMED Code(s): 7992544 (7) History of antineoplastic chemotherapy Current Visit: No Status: Acute Code(s): Z92.21 - PERSONAL HISTORY OF ANTINEOPLASTIC CHEMOTHERAPY SNOMED Code(s): 245325588218420 (8) History of colon cancer Current Visit: No Status: Acute Code(s): Z85.038 - PERSONAL HISTORY OF MALIGNANT NEOPLASM OF LARGE INTESTINE SNOMED Code(s): 150015300 (9) History of radiation therapy Current Visit: No Status: Acute Code(s): Z92.3 - PERSONAL HISTORY OF IRRADIATION SNOMED Code(s): 796294947 (10) Hypothyroidism Current Visit: No Status: Acute Code(s): E03.9 - HYPOTHYROIDISM, UNSPECIFIED SNOMED Code(s): 71712404 (11) Pancreatic insufficiency Current Visit: No Status: Acute Code(s): K86.89 - OTHER SPECIFIED DISEASES OF PANCREAS SNOMED Code(s): 98178076 Plan: She'll continue cefepime, her insulins, thyroid medications of metformin. We'll wait on further recommendations from infectious disease and hematology/oncology. We'll plan for ECF at [facility]. We'll continue her current care. PT OT for evaluation. Encourage fluids and oral intake. Repeat labs in a.m. I'll reevaluate her in the next 24 hours.
[2018-09-23 11:37] LABS: Glucose,Whole Blood 87 mg/dL (75-99)
[2018-09-23] MEDS: FILGRASTIM-SNDZ 480 MCG/0.8 ML SYRINGE SQ SCH (16:01)
[2018-09-23] MEDS ORDERED: FUROSEMIDE 10 MG/ML 4 ML VIAL IV STA (16:18)
--- NOTE | 2018-09-23 16:27 | PN ---
PROGRESS NOTE DATE OF SERVICE: 09/23/2018. REASON FOR FOLLOW UP: E coli UTI infection. INTERVAL HISTORY: The patient is currently afebrile. The patient remains to be slightly lethargic, though was able to answer simple questions. No chest pain or any cough. No nausea, vomiting or diarrhea reported. PHYSICAL EXAMINATION: Blood pressure 118/61 with a pulse of 103. Temperature of 98. She is 96% on room air. General description is an elderly female lying in bed in no distress. Respiratory system: Unlabored breathing, clear to auscultation anteriorly. Heart S1, S2. Regular rate and rhythm. ABDOMEN: Soft, no tenderness. LABS: Hemoglobin 9.6, white count 0.9 with a BUN of 31, creatinine 0.72. Urine with an E coli that is sensitive pathogen. DIAGNOSTIC IMPRESSION AND PLAN: Patient with gram-negative urinary tract infection and underlying neutropenia from her . The patient antibiotic was switched to Rocephin is a sensitive pathogen. Monitor her clinical course closely. Continue supportive care. MMVERONICAL / IJN: [id number] /
[2018-09-23 17:06] LABS: Glucose,Whole Blood 119 mg/dL (75-99)
--- NOTE | 2018-09-23 17:16 | XR ---
EXAMINATION TYPE: XR abdomen 1V DATE OF EXAM: 09/23/2018 COMPARISON: NONE HISTORY: Pain TECHNIQUE: 2 views FINDINGS: There are multiple dilated loops of air and fluid-filled small bowel. There is a large left abdominal hernia. There is incarceration. There is no sign of free air. There are surgical clips in the pelvis. There is a biliary stent. IMPRESSION: Incarcerated left side abdominal wall hernia. Dilated small bowel consistent with mechani dominga small bowel obstruction. Obstruction is new compared to old CT scan of 07/10/2018.
[2018-09-23 20:57] LABS: Glucose,Whole Blood 111 mg/dL (75-99)
[2018-09-24] MEDS: CLOTRIMAZOLE TROCHE 10 MG TROCHE MUCOUS MEM SCH ×4 (01:35→17:29)
[2018-09-24] MEDS: ONDANSETRON 4 MG/2 ML VIAL IVP PRN (03:51)
[2018-09-24] MEDS: SODIUM CHLORIDE 0.9% 1,000 ML IV SCH (04:38)
[2018-09-24] MEDS: LEVOTHYROXINE 50 MCG TAB PO SCH (04:39)
[2018-09-24 07:22] LABS: Glucose,Whole Blood 154 mg/dL (75-99)
[2018-09-24 08:18] LABS: Albumin 1.9 g/dL (3.5-5.0); Calcium 9.3 mg/dL (8.4-10.2); Potassium 3.7 mmol/L (3.5-5.1); Total Bilirubin 1.2 mg/dL (0.2-1.3); Total Protein 4.6 g/dL (6.3-8.2)
[2018-09-24 08:25] LABS: HCT 32.8 % (34.0-46.0); HGB 10.2 gm/dL (11.4-16.0); Hypochromasia Marked; MCH 27.1 pg (25.0-35.0); MCHC 31.2 g/dL (31.0-37.0); MCV 86.9 fL (80.0-100.0); Mean Platelet Volume 12.1; RBC 3.77 m/uL (3.80-5.40); RDW 14.7 % (11.5-15.5); WBC 1.7 k/uL (3.8-10.6)
[2018-09-24 08:32] LABS: Platelet Count 17 k/uL (150-450)
[2018-09-24] MEDS: LIPASE 5,000/PROTEASE 17,000/AMYLASE 24,000 PO SCH ×3 (08:33→17:29)
[2018-09-24] MEDS: metFORMIN 500 MG TAB PO SCH (08:33)
[2018-09-24] MEDS: INSULIN DETEMIR (LEVEMIR) 100 UNIT/ML SYR SQ SCH (08:33)
[2018-09-24] MEDS: INSULIN ASPART (NovoLOG) 100 UNIT/ML VIAL SQ SCH ×3 (08:33→17:30)
[2018-09-24] MEDS: FILGRASTIM-SNDZ 480 MCG/0.8 ML SYRINGE SQ SCH (08:34)
--- NOTE | 2018-09-24 10:58 | P.GSCN ---
History of Present Illness Consult date: 09/24/18 History of present illness: 73-year-old female presented to the emergency department with progressive weakness, dehydration and lethargy. She recently underwent FOLFOX chemotherapy on 09/15/2018. This is secondary to recent diagnosis of pancreatic carcinoma. She also was noted to have a history of colorectal cancer for which she underwent chemo and radiation. Secondary to this she does have a chronic ostomy. On her initial presentation to the emergency department, she did undergo nausea, emesis and increased ostomy output. Since that time emesis didn't resolve and the patient has decreased ostomy output to nothing over the past 2 days. She has not had any further emesis episodes. Initially, it was believed that the patient was having dehydration secondary to undergoing the chemo treatment. She has had some IV fluid hydration during her admission. C urrently, the patient is significantly lethargic and not answering any questions. She is moving extremities. Her white blood cell count is increased to 1.7. Her platelets are 17. Abdominal x-ray was performed yesterday and is concerning for a bowel obstruction. Review of Systems ROS unobtainable: due to mental status Past Medical History Past Medical History: Cancer, Diabetes Mellitus, Thyroid Disorder Additional Past Medical History / Comment(s): 07/2018 diagnosed with pancreatic cancer and is receiving chemotherapy with last time about one week ago, also newly diagnosed IDDM type II, past colorectal cancer with chemo and radiation/colostomy in 1997, hypothyroid History of Any Multi-Drug Resistant Organisms: None Reported Past Surgical History: Appendectomy, Bowel Resection, Joint Replacement, Tonsillectomy Additional Past Surgical History / Comment(s): Mediport then removal of mediport and new port inserted, stent between liver/pancreas at [facility], A/P resection rectum/colostomy, paracolostomy hernia repair, colonoscopies/polypectomies, D&C d/t miscarriage, L breast benign bx, bilateral total knee replacements, bilateral cataract removals/lens implants. Past Anesthesia/Blood Transfusion Reactions: No Reported Reaction, Motion Sickness Smoking Status: Never smoker - Past Family History Father Family Medical History: Cancer Additional Family Medical History / Comment(s): LUNG CA. GRANDMOTHER- COLORECTAL CANCER. GRANDMOTHER- BREAST CANCER Mother Family Medical History: Neurologic Disorder Additional Family Medical History / Comment(s): "she from alzheimers" Brother(s) Family Medical History: Cancer Additional Family Medical History / Comment(s): CA: colorectal- Sister(s) Family Medical History: Cancer Additional Family Medical History / Comment(s): CA: cervical ca caused by D iethylstilbestrol (VANESSA) that mother received while with her Medications and Allergies Home Medications Medication Instructions Recorded Confirmed Type Lipase/Protease/Amylase [Whit Quigley 12,000 units PO AC-TID 08/14/18 09/20/18 History 12,000 Units Capsule] metFORMIN HCL [Glucophage] 500 mg PO DAILY 08/14/18 09/20/18 History Levothyroxine Sodium [Synthroid] 50 mcg PO DAILY 08/28/18 09/20/18 History Insulin Aspart [NovoLOG Flexpen] See Protocol SQ DIRECTED #3 pen 09/02/18 09/20/18 Rx Atorvastatin [Lipitor] 20 mg PO DAILY 09/20/18 09/20/18 History Insulin Glargine,Hum.rec.anlog 19 unit SQ QAM 09/20/18 09/20/18 History [Basaglar Kwikpen U-100] Allergies Allergy/AdvReac Type Severity Reaction Status Date / Time Penicillins AdvReac Unknown Nausea & Verified 09/20/18 10:03 Vomiting Surgical - Exam Osteopathic Statement: *. No significant issues noted on an osteopathic structural exam other than those noted in the History and Physical/Consult. Vital Signs Temp Pulse Resp BP Pulse Ox 98.2 F 101 H 18 130/76 97 09/20/18 08:51 09/20/18 08:51 09/20/18 08:51 09/20/18 08:51 09/20/18 08:51 - General no distress - Eyes Patient is not opening her eyes voluntarily - Neck no masses, no bruits, trachea midline - Respiratory normal respiratory effort - Abdomen Soft, nontender, nondistended, no rebound, no guarding, ostomy site is pink and patent with no output - Neurologic Patient is lethargic and not answering any questions and not arousing to voice Results - Labs 09/24/18 07:36 09/24/18 07:36 Abnormal Lab Results - Last 24 Hours (Table) 09/23/18 09/23/18 09/24/18 Range/Units 17:04 20:44 07:18 WBC (3.8-10.6) k/uL RBC (3.80-5.40) m/uL Hgb (11.4-16.0) gm/dL Hct (34.0-46.0) % Plt Count (150-450) k/uL Chloride (98-107) mmol/L Carbon Dioxide (22-30) mmol/L BUN (7-17) mg/dL Glucose (74-99) mg/dL POC Glucose (mg/dL) 119 H 111 H 154 H (75-99) mg/dL Alkaline Phosphatase (38-126) U/L Total Protein (6.3-8.2) g/dL Albumin (3.5-5.0) g/dL 09/24/18 09/24/18 Range/Units 07:36 07:36 WBC 1.7 L (3.8-10.6) k/uL RBC 3.77 L (3.80-5.40) m/uL Hgb 10.2 L (11.4-16.0) gm/dL Hct 32.8 L (34.0-46.0) % Plt Count 17 L* D (150-450) k/uL Chloride 117 H (98-107) mmol/L Carbon Dioxide 17 L (22-30) mmol/L BUN 47 H (7-17) mg/dL Glucose 151 H (74-99) mg/dL POC Glucose (mg/dL) (75-99) mg/dL Alkaline Phosphatase 180 H (38-126) U/L Total Protein 4.6 L (6.3-8.2) g/dL Albumin 1.9 L (3.5-5.0) g/dL Microbiology - Last 24 Hours (Table) 09/20/18 09:05 Blood Culture - Preliminary Blood No Growth after 72 hours Diabetes panel 09/24/18 Range/Units 07:36 Sodium 143 (137-145) mmol/L Potassium 3.7 (3.5-5.1) mmol/L Chloride 117 H (98-107) mmol/L Carbon Dioxide 17 L (22-30) mmol/L BUN 47 H (7-17) mg/dL Creatinine 0.78 (0.52-1.04) mg/dL Glucose 151 H (74-99) mg/dL Calcium 9.3 (8.4-10.2) mg/dL AST 14 (14-36) U/L ALT 24 (9-52) U/L Alkaline Phosphatase 180 H (38-126) U/L Total Protein 4.6 L (6.3-8.2) g/dL Albumin 1.9 L (3.5-5.0) g/dL Calcium panel 09/24/18 Range/Units 07:36 Calcium 9.3 (8.4-10.2) mg/dL Albumin 1.9 L (3.5-5.0) g/dL Pituitary panel 09/24/18 Range/Units 07:36 Sodium 143 (137-145) mmol/L Potassium 3.7 (3.5-5.1) mmol/L Chloride 117 H (98-107) mmol/L Carbon Dioxide 17 L (22-30) mmol/L BUN 47 H (7-17) mg/dL Creatinine 0.78 (0.52-1.04) mg/dL Glucose 151 H (74-99) mg/dL Calcium 9.3 (8.4-10.2) mg/dL Adrenal panel 09/24/18 Range/Units 07:36 Sodium 143 (137-145) mmol/L Potassium 3.7 (3.5-5.1) mmol/L Chloride 117 H (98-107) mmol/L Carbon Dioxide 17 L (22-30) mmol/L BUN 47 H (7-17) mg/dL Creatinine 0.78 (0.52-1.04) mg/dL Glucose 151 H (74-99) mg/dL Calcium 9.3 (8.4-10.2) mg/dL Total Bilirubin 1.2 (0.2-1.3) mg/dL AST 14 (14-36) U/L ALT 24 (9-52) U/L Alkaline Phosphatase 180 H (38-126) U/L Total Protein 4.6 L (6.3-8.2) g/dL Albumin 1.9 L (3.5-5.0) g/dL - Imaging Abdominal x-ray: report reviewed, image reviewed Assessment and Plan (1) Bowel obstruction Narrative/Plan: 73-year-old female with bowel obstruction and recent diagnosis of pancreatic cancer - I had a long discussion with the patient's , Froilan. Due to the recent finding of a possible bowel obstruction, we will place a nasogastric tube for decompression. With the patient's recent chemotherapy, the patient is noted to be pancytopenic and also thrombocytopenic with platelets at 17,000. I did recommend that if any surgery would be required, the patient would likely need to be assessed by a surgical oncologist prior to intervention. There is a possibility of needing a bowel resection due to a bowel obstruction and the pat ient may need to undergo a bowel resection as part of her oncologic resection and may not be able to tolerate 2 separate procedures in the future. It is also unclear the amount of small bowel that remains after her previous bowel resection for colorectal cancer. With the patient's current clinical status, she will not likely tolerate 2 separate major operations. Her is agreeable to this plan. I also spoke with the patient's primary care physician, Dr. Phillip, and he agrees with this plan. We will place a nasogastric tube and transfer the patient to a tertiary care center with a surgical oncologist for any possible surgical intervention. Current Visit: Yes Status: Acute Code(s): K56.609 - UNSP INTESTNL OBST, UNSP TO PARTIAL VERSUS COMPLETE OBST SNOMED Code(s): 71919094 (2) Pancreatic cancer Current Visit: Yes Status: Acute Code(s): C25.9 - MALIGNANT NEOPLASM OF PANCREAS, UNSPECIFIED SNOMED Code(s): 779659452 (3) Pancytopenia due to chemotherapy Current Visit: Yes Status: Acute Code(s): D61.810 - ANTINEOPLASTIC CHEMOTHERAPY INDUCED PANCYTOPENIA SNOMED Code(s): 8168573
[2018-09-24 11:00] LABS: Glucose,Whole Blood 159 mg/dL (75-99)
[2018-09-24 11:01] LABS: Band Neutrophils % 4 %; Lymphocytes # (M) 0.32 k/uL (1.0-4.8); Monocytes # (M) 0.19 k/uL (0-1.0); Neutrophils % (M) 66 %; Nucleated Red Blood Cells 0 /100 WBC (0-0); Total Cells Counted 100
[2018-09-24 11:03] LABS: Large Platelets Present
--- NOTE | 2018-09-24 11:32 | P.PN ---
Subjective This is a 73-year-old female admitted with increased generalized weakness, dehydration, lethargy, pancytopenia and multiple other medical issues in a patient with history of pancreatic cancer, diabetes mellitus, colorectal cancer status post chemo & radiation, bilateral knee replacements, anxiety and multiple other medical issues. states she recently completed her first of 2 chemotherapy treatments a week ago Tuesday. Upon completion of chemotherapy initially developed nausea vomiting diarrhea. Diarrhea and emesis subsided, remaining nausea ,weakness progressed. states patient collapsed related to her increasingly weak legs, gave out from underneath her. She never lost consciousness. states patient did not have a fever, chest pain, palpitations or increasing shortness of breath,denied abdominal pain. No focal deficits, no lightheadedness or dizziness. Denies headache. The majority of history obtained from , chart as patient is currently lethargic/weak. EKG reporting normal sinus rhythm, septal infarct of undetermined age. WBC on admission 0.4, platelets 17, hemoglobin 10.2, INR 1.1. Sodium 135, potassium 3.8, BUN 25, creatinine 0.49. Magnesium 1.5, total bili 1.7, alk phos 275. albumin 2.4. UA cloudy, urine WBCs 4, urine bacteria occasional. IV fluid hydration initiated. Antibiotics on hold at this time as per oncology. Afebrile, mild tachycardia with heart rates in the low 100s, systolic blood pressures on admission in the 130s, currently low 100s. Maintaining O2 sats in the mid 90s on room air. Blood and urine cultures in progress. 09/22/2018 urine culture growing gram-negative bacilli. Antibiotics-Aztreonam initiated last night as per oncology. Afebrile, WBC 0.5. VSS, Tachycardia resolved, heart rate currently in the 90s. Maintaining O2 sats in the mid to high 90s on room air. Platelets trending down 14. Consuming 25% of breakfast with no nausea vomiting. Potassium 3.4, magnesium 1.4. Alk phos mildly increased from yesterday ,234. 09/23/2018: Patient remains very weak and fatigued. Urine culture showed Escherichia coli with multiple susceptibilities, chest x-ray showed patchy density in the right infrahilar region as well as left lower lobe felt to be possible pneumonia. Infectious diseases been consult and she was started on aztreonam originally by hematology oncology, is been changed to cefepime. She remains on her long-acting insulins, metformin, Synthroid, and when necessary morphine for pain. I discussed her case with her . via the phone and we discussed at outpatient rehabilitation. 09/24/2018: Patient remains very weak and fatigued. She will wake up for just a second to respond. Nursing staff contacted me yesterday about no output in her colostomy bag in all that day. A flat plate abdomen was ordered showing dilated small bowel consistent with mechanical small bowel obstruction. While she did not really taken anything much by mouth, she was made nothing by mouth and surgery was consulted. Her platelet count had decreased to 6 yesterday and she received platelets by oncology. She continues to have Escherichia coli UTI with multiple susceptibilities and small pneumonia. She remains on cefepime. I discussed her case with Dr. Kelley. Discussed her case with her who is at bedside today. Should her bowels obstruction and not improved significantly soon, will agree to transfer to [facility] as it was felt she would be a surgical candidate for removal of the pancreatic lesion. She was seen there previously for stenting. Objective - Vital Signs Vital signs: Vital Signs Temp 97.5 F L 09/24/18 05:00 Pulse 103 H 09/24/18 05:00 Resp 18 09/24/18 05:00 BP 130/76 09/24/18 05:00 Pulse Ox 98 09/24/18 05:00 Intake & Output 09/23/18 09/24/18 09/24/18 18:59 06:59 18:59 Intake Total 342 1120 Output Total 1300 1100 Balance -958 20 Intake: Intake, IV Titration 1120 Amount Sodium Chloride 0.9% 1, 1120 000 ml @ 100 mls/hr IV . Q10H JARED Rx#:[id number] Oral 120 Blood Product 222 Platelet Irr Pheresis 222 Acda1 Unit [id number] Output: Urine 900 1100 Uretheral (Lopez) 300 1100 Stool 400 0 Other: Voiding Method Indwelling Catheter Indwelling Catheter - Exam ENERAL: Lying in bed, sleepy, somewhat arousable, weak, no acute distress HEENT: Conjunctivae normal. eyes normal. Oral thrush, mucosa dry NECK: No JVD. No thyroid enlargement. No LNs CARDIOVASCULAR: S1, S2 muffled. No murmur. RESPIRATION: Breath sounds diminished in the bases. No rhonchi, fine left lower lobe crackles. ABDOMEN: Soft, distended, nontender . colostomy empty this morning., No guarding. no masses palpable. No guarding or rigidity .Bowel sounds heard. LEGS: mild edema, swelling. PSYCHIATRY: Alert and oriented -3, mood and affect normal. NERVOUS SYSTEM: Sleeping, Cranial N 2-12 grossly normal. Generalized, Diffuse weakness .No gross focal deficits. Skin: Warm, dry, intact with no ulcer no rash, mid buttock/sacrum linear deep tissue bruise - Labs CBC & Chem 7: 09/24/18 07:36 09/24/18 07:36 Labs: Abnormal Lab Results - Last 24 Hours (Table) 09/23/18 09/23/18 09/24/18 Range/Units 17:04 20:44 07:18 WBC (3.8-10.6) k/uL RBC (3.80-5.40) m/uL Hgb (11.4-16.0) gm/dL Hct (34.0-46.0) % Plt Count (150-450) k/uL Neutrophils # (Manual) (1.3-7.7) k/uL Lymphocytes # (Manual) (1.0-4.8) k/uL Chloride (98-107) mmol/L Carbon Dioxide (22-30) mmol/L BUN (7-17) mg/dL Glucose (74-99) mg/dL POC Glucose (mg/dL) 119 H 111 H 154 H (75-99) mg/dL Alkaline Phosphatase (38-126) U/L Total Protein (6.3-8.2) g/dL Albumin (3.5-5.0) g/dL 09/24/18 09/24/18 09/24/18 Range/Units 07:36 07:36 10:59 WBC 1.7 L (3.8-10.6) k/uL RBC 3.77 L (3.80-5.40) m/uL Hgb 10.2 L (11.4-16.0) gm/dL Hct 32.8 L (34.0-46.0) % Plt Count 17 L* D (150-450) k/uL Neutrophils # (Manual) 1.10 L (1.3-7.7) k/uL Lymphocytes # (Manual) 0.32 L (1.0-4.8) k/uL Chloride 117 H (98-107) mmol/L Carbon Dioxide 17 L (22-30) mmol/L BUN 47 H (7-17) mg/dL Glucose 151 H (74-99) mg/dL POC Glucose (mg/dL) 159 H (75-99) mg/dL Alkaline Phosphatase 180 H (38-126) U/L Total Protein 4.6 L (6.3-8.2) g/dL Albumin 1.9 L (3.5-5.0) g/dL Microbiology - Last 24 Hours (Table) 09/20/18 09:05 Blood Culture - Preliminary Blood No Growth after 96 hours Assessment and Plan (1) Small bowel obstruction Current Visit: Yes Status: Acute Code(s): K56.609 - UNSP INTESTNL OBST, UNSP TO PARTIAL VERSUS COMPLETE OBST SNOMED Code(s): 342002123 (2) UTI (urinary tract infection) Current Visit: Yes Status: Acute Code(s): N39.0 - URINARY TRACT INFECTION, SITE NOT SPECIFIED SNOMED Code(s): 14593247 (3) Pneumonia Current Visit: Yes Status: Acute Code(s): J18.9 - PNEUMONIA, UNSPECIFIED ORGANISM SNOMED Code(s): 006030147 (4) Dehydration Current Visit: Yes Status: Acute Code(s): E86.0 - DEHYDRATION SNOMED Code(s): 51294337 (5) Pancreatic cancer Current Visit: Yes Status: Acute Code(s): C25.9 - MALIGNANT NEOPLASM OF PANCREAS, UNSPECIFIED SNOMED Code(s): 900401151 (6) Pancytopenia due to chemotherapy Current Visit: Yes Status: Acute Code(s): D61.810 - ANTINEOPLASTIC CHEMOTHERAPY INDUCED PANCYTOPENIA SNOMED Code(s): 4344016 (7) Diabetes mellitus due to underlying condition with hyperglycemia Current Visit: No Status: Acute Code(s): E08.65 - DIABETES DUE TO UNDERLYING CONDITION W HYPERGLYCEMIA SNOMED Code(s): 6706619 (8) History of antineoplastic chemotherapy Current Visit: No Status: Acute Code(s): Z92.21 - PERSONAL HISTORY OF ANTINEOPLASTIC CHEMOTHERAPY SNOMED Code(s): 808083818923753 (9) History of colon cancer Current Visit: No Status: Acute Code(s): Z85.038 - PERSONAL HISTORY OF MALIGNANT NEOPLASM OF LARGE INTESTINE SNOMED Code(s): 379994768 (10) History of radiation therapy Current Visit: No Status: Acute Code(s): Z92.3 - PERSONAL HISTORY OF IRRADIATION SNOMED Code(s): 617178405 (11) Hypothyroidism Current Visit: No Status: Acute Code(s): E03.9 - HYPOTHYROIDISM, UNSPECIFIED SNOMED Code(s): 47698799 (12) Pancreatic insufficiency Current Visit: No Status: Acute Code(s): K86.89 - OTHER SPECIFIED DISEASES OF PANCREAS SNOMED Code(s): 98456456 Plan: She'll continue cefepime, her insulins, thyroid medications and metformin. NG tube per General surgery. CT without contrast per General surgery. We'll wait on further recommendations from infectious disease and hematology/oncology/general surgery. We'll plan for ECF at [facility] if her SBO does resolve on its own, otherwise will plan transferred [facility] surgical oncology We'll continue her current care. PT OT for evaluation. Continue nothing by mouth diet Repeat labs in a.m. She will be reevaluated by my partner 24 hours
[2018-09-24 12:08] VITALS: BP 110/74; PULSE 109; RESP 16; TEMP 97.6
--- NOTE | 2018-09-24 12:58 | CT ---
EXAMINATION TYPE: CT abdomen pelvis wo con DATE OF EXAM: 09/24/2018 COMPARISON: Previous CT scan of the chest, abdomen and pelvis dated 07/10/2018. HISTORY: Follow up SBO CT DLP: 782.7 mGycm Automated exposure control for dose reduction was used. FINDINGS: There are small, bilateral pleural effusions, greater on the left than the right. There is some associated atelectasis or consolidation. There is mild cardiomegaly. There is an NG tube in place. Its tip is within the stomach. Within the abdomen, the liver is enlarged measuring 20 cm. The gallbladder is markedly hydropic measu ring 11 cm. There is a gallstone within the gallbladder. There is stranding about the gallbladder. Th ere is evidence of pneumobilia. There is a biliary stent in place. The spleen is unremarkable. Both adrenal glands are normal. There is no evidence of hydronephrosis or nephrolithiasis. There is fullness to the lateral pancreas but a discrete pancreatic mass is not identified. There is no significant retroperitoneal, inguinal or iliac adenopathy. There is a Lopez catheter within the bladder. The uterus and ovaries are not definitely identified. There is a left lower quadrant ventral hernia which is part of a colostomy. The mouth measures 4.2 cm . Incorporated bowel appears to be site of the transition point of the patient's small bowel obstruct ion.. There are dilated loops of the proximal small bowel with maximal transverse dimension of 4.5 cm. Ther e are numerous air-fluid levels seen. There is some interloop fluid. No free air is identified. There is degenerative disc disease and hypertrophic spondylosis involving the spine. No bony destruct marcie lesion is seen. IMPRESSION: 1. PROXIMAL SMALL BOWEL OBSTRUCTION WITH A TRANSITION POINT AT THE LEVEL OF THE PATIENT'S LEFT PARACE NTRAL VENTRAL HERNIA. 2. FREE INTERLOOP FLUID WITHIN THE SMALL BOWEL. 3. SMALL, BILATERAL EFFUSIONS, GREATER ON THE LEFT THAN THE RIGHT. THERE IS SOME ASSOCIATED ATELECTAS IS OR CONSOLIDATION. 4. HEPATOMEGALY. 5. HYDROPIC GALLBLADDER CONTAINING A GALLSTONE. 6. STATUS POST BILIARY STENT. 7. MILD DEGENERATIVE CHANGES WITHIN THE SPINE.
--- NOTE | 2018-09-24 13:00 | XR ---
EXAMINATION TYPE: XR chest 2V DATE OF EXAM: 09/24/2018 HISTORY: pneumonia. REFERENCE: Previous study dated 09/22/2018. FINDINGS: A MediPort remains in place on the right. There is an NG tube in place. Its tip is in stoma ch. Heart size upper limits of normal. There continues to be some left basilar airspace disease. The righ t infrahilar infiltrate is partially cleared. There is a persistent left effusion. Heart size is uppe r limits of normal. IMPRESSION: 1. BORDERLINE CARDIOMEGALY. 2. BIBASILAR AIRSPACE DISEASE. 3. SMALL LEFT EFFUSION.
--- NOTE | 2018-09-24 15:47 | P.DS ---
Providers Date of admission: 09/22/18 15:47 Expected date of discharge: 09/24/18 Attending physician: Cuba Phillip Consults: 09/20/18 13:10 Consult Physician Routine Consulting Provider: Remi Messina Consult Reason/Comments: Pancreatic Cancer Do you want consulting provider notified?: Yes 09/21/18 21:45 Consult Physician Routine Consulting Provider: Gosia Yip Consult Reason/Comments: Neutropenic Gram Neg Bacilli Urine Do you want consulting provider notified?: Yes 09/23/18 17:42 Consult Physician Routine Consulting Provider: Ghazal Kelley Consult Reason/Comments: sbo Do you want consulting provider notified?: Already Contacted Primary care physician: Cuba Phillip - Discharge Diagnosis(es) (1) Small bowel obstruction Current Visit: Yes Status: Acute (2) UTI (urinary tract infection) Current Visit: Yes Status: Acute (3) Pneumonia Current Visit: Yes Status: Acute (4) Dehydration Current Visit: Yes Status: Acute (5) Pancreatic cancer Current Visit: Yes Status: Acute (6) Pancytopenia due to chemotherapy Current Visit: Yes Status: Acute (7) Diabetes mellitus due to underlying condition with hyperglycemia Current Visit: No Status: Acute (8) History of antineoplastic chemotherapy Current Visit: No Status: Acute (9) History of colon cancer Current Visit: No Status: Acute (10) History of radiation therapy Current Visit: No Status: Acute (11) Hypothyroidism Current Visit: No Status: Acute (12) Pancreatic insufficiency Current Visit: No Status: Acute Hospital Course: This is a 73-year-old female admitted with increased generalized weakness, dehydration, lethargy, pancytopenia and multiple other medical issues in a patient with history of pancreatic cancer, diabetes mellitus, colorectal cancer status post chemo & radiation, bilateral knee replacements, anxiety and multiple other medical issues. states she recently completed her first of 2 chemotherapy treatments a week ago Tuesday. Upon completion of chemotherapy initially developed nausea vomiting diarrhea. Diarrhea and emesis subsided, remaining nausea ,weakness progressed. states patient collapsed related to her increasingly weak legs, gave out from underneath her. She never lost consciousness. states patient did not have a fever, chest pain, palpitations or increasing shortness of breath,denied abdominal pain. No focal deficits, no lightheadedness or dizziness. Denies headache. The majority of history obtained from , chart as patient is currently lethargic/weak. EKG reporting normal sinus rhythm, septal infarct of undetermined age. WBC on admission 0.4, platelets 17, hemoglobin 10.2, INR 1.1. Sodium 135, potassium 3.8, BUN 25, creatinine 0.49. Magnesium 1.5, total bili 1.7, alk phos 275. albumin 2.4. UA cloudy, urine WBCs 4, urine bacteria occasional. IV fluid hydration initiated. Antibiotics on hold at this time as per oncology. Afebrile, mild tachycardia with heart rates in the low 100s, systolic blood pressures on admission in the 130s, currently low 100s. Maintaining O2 sats in the mid 90s on room air. Blood and urine cultures in progress. 09/22/2018 urine culture growing gram-negative bacilli. Antibiotics-Aztreonam initiated last night as per oncology. Afebrile, WBC 0.5. VSS, Tachycardia resolved, heart rate currently in the 90s. Maintaining O2 sats in the mid to high 90s on room air. Platelets trending down 14. Consuming 25% of breakfast with no nausea vomiting. Potassium 3.4, magnesium 1.4. Alk phos mildly increased from yesterday ,234. 09/23/2018: Patient remains very weak and fatigued. Urine culture showed Escherichia coli with multiple susceptibilities, chest x-ray showed patchy density in the right infrahilar region as well as left lower lobe felt to be possible pneumonia. Infectious diseases been consult and she was started on aztreonam originally by hematology oncology, is been changed to cefepime. She remains on her long-acting insulins, metformin, Synthroid, and when necessary morphine for pain. I discussed her case with her . via the phone and we discussed at outpatient rehabilitation. 09/24/2018: Patient remains very weak and fatigued. She will wake up for just a second to respond. Nursing staff contacted me yesterday about no output in her colostomy bag in all that day. A flat plate abdomen was ordered showing dilated small bowel consistent with mechanical small bowel obstruction. While she did not really taken anything much by mouth, she was made nothing by mouth and surgery was consulted. Her platelet count had decreased to 6 yesterday and she received platelets by oncology. She continues to have Escherichia coli UTI with multiple susceptibilities and small pneumonia. She remains on cefepime. I discussed her case with Dr. Kelley. Discussed her case with her who is at bedside today. Should her bowels obstruction and not improved significantly soon, will agree to transfer to [facility] as it was felt she would be a surgical candidate for removal of the pancreatic lesion. She was seen there previously for stenting. 09/24/2018 ADDENDUM: Contacted by nursing, Dr Kelley reveiwed CT abdomen and felt SBO is complicated by Ventral hernia. He believes that a tertiary center is needed in light of the complexity of her case, immunosupression, Pancreatic CA, current Pneumonia, and UTI. Patient had a stent of her pancreatic Duct? at [facility] and will be transferred there for further care when a bed becomes available today. Patient Condition at Discharge: Poor Plan - Discharge Summary Discharge Rx Participant: No New Discharge Prescriptions: New Insulin Detemir (Levemir) [Levemir] 19 unit SQ QAM syr Clotrimazole Destiny [Mycelex Destiny] 10 mg MUCOUS MEM 5XD destiny INSULIN ASPART (NovoLOG) [NovoLOG (formulary)] 0 unit SQ ACHS vial cefTRIAXone [Rocephin] 2 gm IVPB Q24HR vial Acetaminophen Tab [Tylenol] 650 mg PO Q6HR PRN tab PRN Reason: Mild Pain Or Fever > 100.5 Filgrastim-Sndz [Zarxio] 480 mcg SQ DAILY syringe Lipase/Protease/Amylase [Geo Quigley 5,000 Unit Capsule] 2 each PO AC-TID capsule.dr Continue Lipase/Protease/Amylase [Whit Quigley 12,000 Units Capsule] 12,000 units PO AC- TID Levothyroxine Sodium [Synthroid] 50 mcg PO DAILY Insulin Aspart [NovoLOG Flexpen] See Protocol SQ DIRECTED #3 pen Insulin Glargine,Hum.rec.anlog [Basaglar Kwikpen U-100] 19 unit SQ QAM Discontinued metFORMIN HCL [Glucophage] 500 mg PO DAILY Atorvastatin [Lipitor] 20 mg PO DAILY Discharge Medication List Lipase/Protease/Amylase [Whit Quigley 12,000 Units Capsule] 12,000 units PO AC-TID 08/14/18 [History] Levothyroxine Sodium [Synthroid] 50 mcg PO DAILY 08/28/18 [History] Insulin Aspart [NovoLOG Flexpen] See Protocol SQ DIRECTED #3 pen 09/02/18 [Rx] Insulin Glargine,Hum.rec.anlog [Basaglar Kwikpen U-100] 19 unit SQ QAM 09/20/18 [History] Acetaminophen Tab [Tylenol] 650 mg PO Q6HR PRN tab 09/24/18 [Rx] Clotrimazole Destiny [Mycelex Destiny] 10 mg MUCOUS MEM 5XD destiny 09/24/18 [Rx] Filgrastim-Sndz [Zarxio] 480 mcg SQ DAILY syringe 09/24/18 [Rx] INSULIN ASPART (NovoLOG) [NovoLOG (formulary)] 0 unit SQ ACHS vial 09/24/18 [Rx] Insulin Detemir (Levemir) [Levemir] 19 unit SQ QAM syr 09/24/18 [Rx] Lipase/Protease/Amylase [Zenpep 5,000 Unit Capsule] 2 each PO AC-TID capsule. 09/24/18 [Rx] cefTRIAXone [Rocephin] 2 gm IVPB Q24HR vial 09/24/18 [Rx] Follow up Appointment(s)/Referral(s): [facility], [NON-STAFF] - 1 Week Cuba Phillip MD [Primary Care Provider] - 1-2 days (upon D/C from [facility]) Discharge Disposition: OTHER INSTITUTION NOT DEFINED
--- NOTE | 2018-09-24 16:58 | PN ---
PROGRESS NOTE DATE OF SERVICE: 09/24/2018. REASON FOR FOLLOWUP: E coli urinary tract infection. INTERVAL HISTORY: The patient is currently afebrile. The patient is breathing comfortably. Hemodynamically stable. No nausea or vomiting. The patient did develop a small bowel obstruction for which an NG has been placed. She was lethargic and unable to provide any history. PHYSICAL EXAMINATION: Blood pressure 110/74 with a pulse 109, temperature 97.6. She is 93% on room air. General description is an elderly female lying in bed in no distress. Respiratory system: Unlabored breathing, decreased breath sounds in the bases. No wheeze. Heart S1, S2. Regular rate and rhythm. Abdomen soft, no tenderness. LABS: Hemoglobin is 10.2, white count 1.7, BUN of 47, creatinine 0.78. Urine with an E coli. DIAGNOSTIC IMPRESSION AND PLAN: Patient with E coli urinary tract infection, currently covered with Rocephin short course of oral antibiotic once small bowel ileus has resolved. Apparently the patient is being transferred to tertiary care for further management of underlying small bowel obstruction. Son was present at bedside. Questions answered. MMODL / IJN: [id number] /
[2018-09-24 17:10] LABS: Glucose,Whole Blood 171 mg/dL (75-99)
== END 2018-09-24 18:29 | disposition short-term general hospital (02) | DRG 808 ==
LOC: EC 08:50 → 3NMEDONC 13:10 → INTOOBSV 09-22 15:47 → OBSVTOIN 09-22 15:47
PROVIDERS: ADMIT Family Medicine; ATTEND Family Medicine
PROC: 30233R1 Transfusion of Nonautologous Platelets into Peripheral Vein, Percutaneous Approach (ICD-10-PCS; principal; 2018-09-23)
DX: D61.810 Antineoplastic chemotherapy induced pancytopenia (principal); J18.9 Pneumonia, unspecified organism; C25.9 Malignant neoplasm of pancreas, unspecified; J44.0 Chronic obstructive pulmonary disease with (acute) lower respiratory infection; N39.0 Urinary tract infection, site not specified; B37.0 Candidal stomatitis; B96.20 Unspecified Escherichia coli [E. coli] as the cause of diseases classified elsewhere; E03.9 Hypothyroidism, unspecified; E11.65 Type 2 diabetes mellitus with hyperglycemia; E78.5 Hyperlipidemia, unspecified; E86.0 Dehydration; E83.42 Hypomagnesemia; E87.5 Hyperkalemia; I10 Essential (primary) hypertension; T45.1X5A Adverse effect of antineoplastic and immunosuppressive drugs, initial encounter; Z79.4 Long term (current) use of insulin; Z79.890 Hormone replacement therapy; Z79.899 Other long term (current) drug therapy; Z80.0 Family history of malignant neoplasm of digestive organs; Z80.1 Family history of malignant neoplasm of trachea, bronchus and lung; Z80.3 Family history of malignant neoplasm of breast; Z80.49 Family history of malignant neoplasm of other genital organs; Z82.0 Family history of epilepsy and other diseases of the nervous system; Z85.048 Personal history of other malignant neoplasm of rectum, rectosigmoid junction, and anus; Z88.0 Allergy status to penicillin; Z90.49 Acquired absence of other specified parts of digestive tract; Z92.3 Personal history of irradiation; Z93.3 Colostomy status; Z96.653 Presence of artificial knee joint, bilateral; Z98.42 Cataract extraction status, left eye; Z98.41 Cataract extraction status, right eye; Z96.1 Presence of intraocular lens; Z51.5 Encounter for palliative care
CPT/HCPCS: 36415; 71045; 71046; 74018; 74176; 80053; 81001; 82607; 82728; 83540; 83550; 83605; 83735; 84484; 85025; 85610; 85730; 86850; 86900; 86901; 87040; 87077; 87086; 87186; 87324; 87502; 93005; 94760; 96360; 96361; 99285